=== PATIENT | male | born 1990 | race Caucasian/White ===

== ENCOUNTER 2016-11-11 07:46 | Inpatient (IN) | payer OTHER ==
[2016-11-11] MEDS ORDERED: HYDROmorphONE/DILAUDID 1 MG/ML SYR IVP ONE ×2 (08:19→09:56)
[2016-11-11] MEDS ORDERED: NS 1,000 ML IV ONE ×3 (08:19→16:00)
[2016-11-11] MEDS ORDERED: DEXAMETHASONE 10 MG/ML VIAL IVP ONE (08:19)
[2016-11-11] MEDS ORDERED: AMPICILLIN/SULBACTAM 3 GM in NS 100 ML IV ONE (08:19)
--- NOTE | 2016-11-11 08:22 | EDPHY ---
H & P Time Seen by Provider: 11/11/16 08:02 HPI/ROS: CHIEF COMPLAINT: Sore throat and facial swelling HISTORY OF PRESENT ILLNESS: Patient had dental pain for several days. History is difficult because the patient has and difficulty talking because he has trouble opening his mouth is really painful to speak. Yesterday was placed on oral amoxicillin and has an appointment with Dr. Couch tomorrow to have a tooth extracted. Today presents with facial swelling and difficulty opening his mouth. Right- sided cheek and jaw pain which is severe. Worse with opening his mouth. Does not radiate. Not associated with fever or chills or difficulty breathing. REVIEW OF SYSTEMS: Eye: no change in vision ENT: HPI, no ear pain Cardiac: no chest pain or syncope Pulmonary: no cough or SOB Abdomen: no vomiting, diarrhea, abdominal pain Musculoskeletal: no back pain Skin: no rash Neuro: no headache Constitutional: no fever : no urinary symptoms A comprehensive 10 point review of systems is otherwise negative aside from elements mentioned in the history of present illness. PAST MEDICAL HISTORY: Negative Social history: Lives in [facility] General Appearance: Alert and conversant, cooperative. Eyes: No scleral icterus. ENT, Mouth: Normal tympanic membranes. He does have trismus. There is mild right facial swelling. No stridor or drooling. Pharynx is unable to be visualized. Respiratory: Normal respiratory effort, breath sounds equal, lungs are clear to auscultation. Cardiovascular: Regular rate and rhythm. Gastrointestinal: Abdomen is soft and non tender. Neurological: Alert and oriented x3. Normally conversant. Face symmetric, normal movement and sensation in all extremities. Skin: Warm and dry, no rashes. Specifically no rash over the right cheek. Musculoskeletal: No peripheral edema and no joint swelling. Psychiatric: Not agitated. Emergency Department course/MDM: IV normal saline 2 L, Dilaudid 0.5 mg IV, Unasyn 3 g IV, dexamethasone [address] scanning to evaluate for abscess, consultation with Dr. Couch his oral surgeon. Per Dr. Couch admit for IV fluids and antibiotics, and he will see him later this afternoon. At this point when the patient is able to speak he does not have stridor or drooling and I do not think he is at high risk of acute airway obstruction at this time. Smoking Status: Never smoked Constitutional: Initial Vital Signs Temperature (C) 37 C 11/11/16 07:47 Heart Rate 105 H 11/11/16 07:47 Respiratory Rate 18 11/11/16 07:47 Blood Pressure 134/90 H 11/11/16 07:47 O2 Sat (%) 99 11/11/16 07:47 O2 Delivery Mode Room Air Allergies/Adverse Reactions: No Known Allergies Allergy (Unverified 11/11/16 07:51) Home Medications: Medication Instructions Recorded Amoxicillin 500 mg PO Q8 11/11/16 Medical Decision Making - Diagnostics Imaging Results: Imaging Impressions Face CT 11/11/16 08:30 Impression: 1. No evidence of mass or lymphadenopathy within the neck. There are some prominent reactive nodes on each side of the neck. 2. Minimal mucosal thickening inferior aspect of each maxillary sinus. 3. Mild soft tissue thickening along the inferior aspect of the mandible in the subcutaneous tissues and involving the platysmas muscle. No evidence of abscess. Findings discussed with Nain Tilley M.D. at 9:15 hour, 11/11/2016. Maxillofacial CT reviewed with Dr. Sarkar, with IV contrast at 9:10 a.m.. No abscess seen. Consult/Admit Bed Type: [address] will admit, [facility] for [place] [address] - Data Points Laboratory Results: Laboratory Results 11/11/16 08:19 11/11/16 08:19 11/11/16 11/11/16 11/11/16 08:21 08:19 08:19 WBC 10.96 10^3/uL H 10^3/uL (3.80-9.50) RBC 4.76 10^6/uL 10^6/uL (4.40-6.38) Hgb 15.9 g/dL g/dL (13.7-17.5) POC Hgb 15.6 gm/dL gm/dL (14.5-17.3) Hct 44.0 % % (40.0-51.0) POC Hct 46 % % (42.8-50.6) MCV 92.4 fL fL (81.5-99.8) MCH 33.4 pg pg (27.9-34.1) MCHC 36.1 g/dL g/dL (32.4-36.7) RDW 11.6 % % (11.5-15.2) Plt Count 123 10^3/uL L 10^3/uL (150-400) MPV 9.9 fL fL (8.7-11.7) Neut % (Auto) 80.7 % H % (39.3-74.2) Lymph % (Auto) 5.8 % L % (15.0-45.0) [place] % (Auto) 12.6 % % (4.5-13.0) Eos % (Auto) 0.0 % L % (0.6-7.6) Baso % (Auto) 0.4 % % (0.3-1.7) Nucleat RBC Rel Count 0.0 % % (0.0-0.2) Absolute Neuts (auto) 8.84 10^3/uL H 10^3/uL (1.70-6.50) Absolute Lymphs (auto) 0.64 10^3/uL L 10^3/uL (1.00-3.00) Absolute Monos (auto) 1.38 10^3/uL H 10^3/uL (0.30-0.80) Absolute Eos (auto) 0.00 10^3/uL L 10^3/uL (0.03-0.40) Absolute Basos (auto) 0.04 10^3/uL 10^3/uL (0.02-0.10) Absolute Nucleated RBC 0.00 10^3/uL 10^3/uL (0-0.01) Immature Gran % 0.5 % % (0.0-1.1) Seg Neutrophils % 49 % % Band Neutrophils % 35 % % Lymphocytes % 3 % % Monocytes % 13 % % Immature Gran # 0.06 10^3/uL 10^3/uL (0.00-0.10) Absolute Seg Neuts 5.37 10^/uL 10^/uL (1.70-6.50) Absolute Band Neuts 3.84 10^3/uL H 10^3/uL (0.00-0.70) Absolute Lymphocytes 0.33 10^3/uL L 10^3/uL (1.00-3.00) Absolute Monocytes 1.42 10^3/uL H 10^3/uL (0.30-0.80) RBC/WBC/PLT Morphology NORMAL (NORMAL) Platelet Estimate DECREASED L (ADEQ) POC Sodium 134 mEq/L mEq/L (134-144) Sodium 133 mEq/L L mEq/L (134-144) POC Potassium 3.5 mEq/L mEq/L (3.3-5.0) Potassium 3.9 mEq/L mEq/L (3.5-5.2) POC Chloride 96 mEq/L mEq/L (96-108) Chloride 97 mEq/L mEq/L (97-110) Carbon Dioxide 25 mEq/l mEq/l (22-31) Anion Gap 11 mEq/L mEq/L (8-16) POC BUN 11 mg/dL mg/dL (7-23) BUN 13 mg/dL mg/dL (7-23) Creatinine 0.9 mg/dL mg/dL (0.7-1.3) POC Creatinine 0.9 mg/dL mg/dL (0.8-1.5) Estimated GFR > 60 Glucose 99 mg/dL mg/dL (70-100) POC Glucose 101 mg/dL H mg/dL (70-100) Calcium 9.1 mg/dL mg/dL (8.5-10.4) Medications Given: Discontinued Medications Dexamethasone (Decadron Injection) 10 mg IVP EDNOW ONE Stop: 11/11/16 08:20 Last Admin: 11/11/16 08:35 Dose: 10 mg Hydromorphone HCl (Dilaudid) 0.5 mg IVP EDNOW ONE Stop: 11/11/16 08:20 Last Admin: 11/11/16 08:35 Dose: 0.5 mg Hydromorphone HCl (Dilaudid) 0.5 mg IVP EDNOW ONE Stop: 11/11/16 09:57 Last Admin: 11/11/16 10:07 Dose: 0.5 mg Sodium Chloride (Ns) 1,000 mls @ 0 mls/hr IV ONCE ONE PRN Reason: Wide Open Stop: 11/11/16 08:20 Last Admin: 11/11/16 08:36 Dose: 1,000 mls Sodium Chloride (Ns) 1,000 mls @ 0 mls/hr IV ONCE ONE PRN Reason: Wide Open Stop: 11/11/16 08:20 Last Admin: 11/11/16 09:56 Dose: 1,000 mls Ampicillin Sodium/Sulbactam (Sodium 3 gm/ Sodium Chloride) 100 mls @ 200 mls/ hr IV EDNOW ONE PRN Reason: Protocol Stop: 11/11/16 08:48 Last Admin: 11/11/16 09:00 Dose: 100 mls Point of Care Test Results: 11/11/16 08:21 POC Sodium 134 POC Potassium 3.5 POC Chloride 96 POC BUN 11 POC Creatinine 0.9 POC Glucose 101 H Departure - Departure Disposition: [facility] Inpatient Acute Clinical Impression: Facial cellulitis Condition: Good
[2016-11-11 08:32] LABS: % IMMATURE GRANULYOCYTES 0.5 % (0.0-1.1); ABSOLUTE IMMATURE GRANULOCYTES 0.06 10^3/uL (0.00-0.10); ADD DIFF? NO; ADD MORPH? NO; ADD SCAN? YES; ATYPICAL LYMPHOCYTE FLAG 0 (0-99); FRAGMENT RBC FLAG 0 (0-99); HEMOGLOBIN 15.9 g/dL (13.7-17.5); LIPEMIA HEMOLYSIS FLAG 90 (0-99); MEAN CELL HEMOGLOBIN 33.4 pg (27.9-34.1); MEAN CELL HEMOGLOBIN CONCENTR. 36.1 g/dL (32.4-36.7); MEAN CELL VOLUME 92.4 fL (81.5-99.8); MEAN PLATELET VOLUME 9.9 fL (8.7-11.7); PLATELET CLUMPS FLAG 30 (0-99); PLATELET COUNT 123 10^3/uL (150-400); RED BLOOD CELL COUNT 4.76 10^6/uL (4.40-6.38); RED CELL DISTRIBUTION WIDTH 11.6 % (11.5-15.2)
[2016-11-11 08:35] LABS: LEFT SHIFT FLG 300 (0-99)
[2016-11-11] MEDS ORDERED: IOPAMIDOL (ISOVUE-300) 100 ML BTL IV ONE (08:38)
[2016-11-11 08:43] LABS: ANION GAP 11 mEq/L (8-16); CALCIUM 9.1 mg/dL (8.5-10.4); CARBON DIOXIDE 25 mEq/l (22-31); CHLORIDE 97 mEq/L (97-110); CREATININE 0.9 mg/dL (0.7-1.3); GLOMERULAR FILTRATION RATE > 60; GLUCOSE 99 mg/dL (70-100); POTASSIUM 3.9 mEq/L (3.5-5.2); SODIUM 133 mEq/L (134-144)
[2016-11-11 09:13] LABS: SCAN POSITIVE
[2016-11-11 09:24] LABS: PLATELET ESTIMATE DECREASED (ADEQ)
[2016-11-11] MEDS ORDERED: ONDANSETRON DISINTEGRATING 4 MG TAB PO PRN (10:52)
[2016-11-11] MEDS ORDERED: ONDANSETRON 4 MG/2 ML VIAL IVP PRN (10:52)
[2016-11-11] MEDS: D5W 1/2 NS 1,000 ML IV SCH ×2 (11:30→16:56)
[2016-11-11] MEDS: AMPICILLIN/SULBACTAM 3 GM in NS 100 ML IV SCH ×3 (11:36→23:35)
[2016-11-11] MEDS: DEXAMETHASONE 4 MG/ML VIAL IVP SCH ×3 (11:36→23:37)
[2016-11-11] MEDS: HYDROmorphONE/DILAUDID 1 MG/ML SYR IVP PRN ×3 (11:52→22:21)
--- NOTE | 2016-11-11 12:32 | GHP ---
[f rep st] HISTORY AND PHYSICAL DATE OF ADMISSION: 11/11/2016 CHIEF COMPLAINT: Right tooth pain, inability to open mouth. HISTORY OF PRESENT ILLNESS: This is a 26-year-old male, who has had tooth pain for the last 3 or 4 days. The patient had swelling and worsened in spite of being on amoxicillin. He is now unable to open his mouth. He has severe sore throat, is unable to swallow. He has severe right-sided cheek a nd jaw pain. He had fevers about 2 or 3 days ago, but not any since then. REVIEW OF SYSTEMS: A 10-point review of systems was obtained and negative. PAST MEDICAL HISTORY: None. MEDICATIONS: Amoxicillin. SOCIAL HISTORY: No smoking or alcohol. 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 FAMILY HISTORY: Reviewed and noncontributory. PHYSICAL EXAM: VITAL SIGNS: Afebrile, blood pressure is 138/77, heart rate 99, oxygen saturation 9 2% on room air. GENERAL: The patient is well developed, in no apparent distress. HEENT: Nonicter ic sclerae. EOMs intact. Has significant tenderness along the right jaw, as well as left jaw, and some tender lymphadenopathy. LUNGS: Good effort. Clear to auscultation bilaterally. CARDIOVASCUL AR: Regular rate and rhythm. No murmurs, gallops. ABDOMEN: Positive bowel sounds. Soft, nontend er, nondistended. No hepatosplenomegaly. EXTREMITIES: No clubbing, cyanosis, or edema. SKIN: Wi thout rash, dry, intact. NEUROLOGIC: Alert and oriented x3. Moves all 4 extremities equally. PSY CH: Normal affect. LABS: White blood cell count is 10, sodium is 133. A facial CT does not show any abscess. ASSESSMENT: This is a 26-year-old male with severe dental infection, who will require tooth extract ion. PLAN: Patient will be admitted for IV pain medicine. We will start IV Unasyn, as well as Decadron. His oral surgeon has been called and will see him this afternoon. I am not sure if he will take h im to the OR today or tomorrow. /[id number]/MODL
[2016-11-11] MEDS: NS 1,000 ML IV SCH ×2 (17:07→23:35)
--- NOTE | 2016-11-11 17:47 | GCON ---
[f rep st] CONSULTATION DATE OF CONSULTATION: 11/11/2016 CHIEF COMPLAINT: Right-sided tooth pain and facial pain. HISTORY OF PRESENT ILLNESS: The patient is a previously healthy 26-year-old male who has suffered from tooth pain associated with tooth #31 for the last 3- 4 days. He was scheduled to be seen in my office tomorrow for extraction of tooth #31. However, he began to have increased swelling, difficulty speaking, dyspnea, dysphagia, and trismus, for which he was admitted to the hospital today. He was previously taking amoxicillin. He is currently on Unasyn as an inpatient. He reports being febrile for the last 2 or 3 days. PAST MEDICAL HISTORY: Denies a history of cardiac, pulmonary, renal, or hepatic disease. MEDICATIONS: Amoxicillin. Allergies: NKDA SOCIAL HISTORY: No smoking but reports social alcohol use. PHYSICAL EXAMINATION: HEAD AND NECK: The patient has a mild right-sided submandibular swelling which is tender to palpation. The area is fluctuant and not cellulitic. Intraoral examination is limited because the patient's maximum vertical opening is approximately 15 mm. The patient has significant floor of mouth swelling with the mucosa extending over the occlusal surface of the teeth. There is a large carious lesion on tooth #31. The tooth is painful to palpation. There is no buccal vestibular swelling. The airway examination cannot be performed due to the limited oral opening. RADIOGRAPHS: CT scan reveals a small loculation of fluid directly lingual to the mandible adjacent to tooth #31. The patient has some slight airway deviation and some cellulitic changes in the soft tissue. ASSESSMENT AND PLAN: Findings were discussed in detail with Sharan. All questions were answered. I have informed the patient that he has a submandibular and sublingual space infection and that I would like to take him to the operating room to extract tooth #31 and perform intraoral and possibly extraoral incision and drainage of the suspected odontogenic abscess. The patient understands that if any other teeth are determined to be carious and nonrestorable they will also be extracted at that point in time. Risks, benefits, consequences, complications of the procedure were thoroughly discussed in detail including the possibility of damage to the lingual nerve, inferior alveolar nerve and/or marginal mandibular nerve as well as their innervation. Signed and verbal consent was obtained. The patient will be admitted back to the hospitalist service following incision and drainage of the abscess and extraction of tooth #31. I will try and perform this tonight. The patient has been n.p.o. since 7 this morning. /[id number]/MODL MTDD
[2016-11-11] MEDS ORDERED: BUPIVACAINE/EPI 0.25% 30 ML SDV ONE (18:32)
[2016-11-11] MEDS ORDERED: BACITRACIN 50,000 UNITS/10 ML SYR IRR ONE (18:32)
[2016-11-11] MEDS ORDERED: BUPIVACAINE/EPI 0.5% 30 ML SDV ONE (18:32)
[2016-11-11] MEDS ORDERED: POLYMYXIN B SULFATE 500,000 UNIT/10 ML SYR IRR ONE (18:32)
[2016-11-11] MEDS ORDERED: LIDO/EPI 2%** Not for Epidural 20 ML MDV ONE (18:51)
[2016-11-11] MEDS ORDERED: LIDO/EPI 2% **for epidural** 20 ML SDV ONE (18:51)
[2016-11-11] MEDS ORDERED: MIDAZOLAM 2 MG/2 ML VIAL ONE (19:25)
[2016-11-11] MEDS ORDERED: ROCURONIUM 50 MG/5 ML VIAL ONE ×2 (19:32→20:19)
[2016-11-11] MEDS ORDERED: SUCCINYLCHOLINE CHLORIDE*ANESTHESIA ONLY*200 MG/10 ML SYR IVP ONE (19:32)
[2016-11-11] MEDS ORDERED: LIDOCAINE 2% 5 ML SDV ONE (19:33)
[2016-11-11] MEDS ORDERED: fentaNYL 100 MCG/2 ML INJ ONE ×3 (19:33→21:10)
[2016-11-11] MEDS ORDERED: PROPOFOL 200 MG/20 ML VIAL ONE (19:33)
[2016-11-11] MEDS ORDERED: LIDOCAINE 2% JELLY 5 ML TUBE ONE (19:37)
[2016-11-11] MEDS ORDERED: SUGAMMADEX SODIUM 200 MG/2 ML VIAL IVP ONE (19:50)
[2016-11-11] MEDS ORDERED: DEXAMETHASONE 4 MG/ML VIAL ONE ×2 (20:01)
--- NOTE | 2016-11-11 20:04 | POSTOPPROG ---
Post Op Note Date of Operation: 11/11/16 Surgeon: Edwin Couch Denture Technician: none Anesthesia: GET(General Endotracheal) (Nasal intubation) Pre-op Diagnosis: Right submandibular and sublingual odontogenic abscess, carious #31 Post-op Diagnosis: Same Indication: Odontogenic abscess Procedure: Extraction #31, I&D of right submandibular and sublingual space abscess Findings: right submandibular and sublingual space abscess Inf/Abcess present in the surg proc area at time of surgery?: Yes Depth: Deep Incisional (Fascial) (sublingual and right submandibular space abscess) EBL: Minimal Total fluids administered: 700cc Complications: none Drains: Other (12 Fr red rubber catheter in the right submandibular space) Specimen(s): none
[2016-11-11] MEDS ORDERED: PROPOFOL/EMULSION 500 MG/50 ML BOTTLE IV ONE (21:11)
[2016-11-11] MEDS ORDERED: PROPOFOL/EMULSION 1,000 MG/100 ML BOTTLE IV ONE (22:08)
[2016-11-11] MEDS: PROPOFOL/EMULSION 100 ML IV SCH (22:18)
[2016-11-11] MEDS: fentaNYL/NACL 100 ML IV SCH (22:21)
--- NOTE | 2016-11-11 22:43 | GOP ---
[f rep st] OPERATIVE REPORT DATE OF OPERATION: 11/11/2016 SURGEON: Edwin Couch DDS OPINION POLLS SURVEY WORKER: None. ANESTHESIA: General nasotracheal. PREOPERATIVE DIAGNOSIS: 1. Right submandibular odontogenic abscess. 2. Sublingual odontogenic abscess. 3. Carious tooth #31. POSTOPERATIVE DIAGNOSIS: 1. Right submandibular odontogenic abscess. 2. Sublingual odontogenic abscess. 3. Carious tooth #31. PROCEDURE PERFORMED: 1. Surgical extraction of tooth #31. 2. Intraoral drainage of a right sublingual and submandibular space abscess. 3. Extraoral drainage of a right submandibular and sublingual space abscess. FINDINGS: Right submandibular and sublingual space abscess. ESTIMATED BLOOD LOSS: Minimal. INDICATIONS: The patient is a previously healthy 26-year-old male who developed acute right-sided facial swelling, dysphagia, dyspnea, trismus and was admitted to the hospital with a suspected right submandibular and sublingual space abscess from a carious tooth #31. He was evaluated as an inpatient earlier today, and determined that incision and drainage was necessary to help resolve his infection. Signed and verbal consent was obtained. DESCRIPTION OF PROCEDURE: The patient was transported into the OR and onto the operating room table. Following successful nasotracheal intubation, the patient was prepped and draped in a normal sterile fashion. Intraorally, he was prepped with Peridex mouth rinse. A throat screen and bite block were placed. Then 5 cc of 2% lidocaine with 1:100,000 epinephrine was given in an inferior alveolar nerve and long buccal block. A #15 blade was used to make a sulcular incision around tooth #31 with a distal 3rd molar releasing incision. Subperiosteal dissection was performed with a [place] elevator. Tooth #31 was elevated. It was then sectioned with a surgical handpiece under copious irrigation. The tooth was divided, and the roots were then elevated and delivered individually. Purulence was noted to be draining through the extraction site which was cultured. Next the #15 blade was used to create a lingual sulcular incision, and subperiosteal dissection was performed to enter the submandibular abscess cavity on the right. Minimal drainage was obtained. It was then determined that extraoral drainage would be necessary to establish dependent drainage. An incision line was marked 2 cm below the inferior border of the mandible in a resting skin tension line. Then 5 cc of local anesthesia was infiltrated superficially. A #15 blade was used to make a 2 cm incision in the neck line. Bovie electrocautery was used to perform dissection down to the platysma muscle. Bleeders were cauterized. Blunt dissection was then performed with a hemostat through the platysma muscle and through the deeper tissue, to enter the submandibular abscess cavity as well as into the sublingual space. Approximately 5 cc of purulent material was evacuated from the abscess cavity. A 12-[place] red rubber catheter was placed into the abscess cavity, and 500 cc of normal saline impregnated with polymyxin and bacitracin antibiotic was irrigated into the abscess cavity. The red rubber catheter was left in the cavity and was secured to the skin with a 5-0 nylon suture. Four interrupted nylon sutures were used to loosely reapproximate the proximal portion of the incision. The distal portion was left open. The throat screen and bite block were removed. Due to the patient's airway swelling, it was determined that we were going to leave him intubated overnight. The nasotracheal tube was secured to the septum with a septal suture. The patient was then transported to the ICU in stable condition and intubated. SURGEON: Edwin Couch DDS. DRAINS: An extraoral drain placed in the right submandibular space. DISPOSITION: The patient will be remain intubated overnight and will be evaluated tomorrow for extubation with an air leak test. Following resolution of his facial swelling and improvement in his white count, will evaluate the patient for discharge to home. He will be admitted to the hospitalist service. /[id number]/MODL MTDD
[2016-11-11] MEDS: LORazepam 2 MG/ML INJ IVP PRN (22:52)
[2016-11-11 23:06] LABS: BASE EXCESS -2.6 mEq/L (-2.5-2.5); BICARBONATE 21 mEq/L (22-26); MEASURED OXYGEN SATURATION 99 % (92-95); PCO2 36 mmHg (34-38); PO2 204 mmHg (65-75); TCO2 22 mEq/L (23-27)
[2016-11-11 23:08] LABS: END TIDAL CO2 35; SIMV YES
[2016-11-11 23:09] LABS: PRESSURE SUPPORT 7
[2016-11-12] MEDS: PROPOFOL/EMULSION 100 ML IV SCH ×3 (00:52→11:32)
[2016-11-12] MEDS: LORazepam 2 MG/ML INJ IVP PRN ×6 (02:25→16:45)
[2016-11-12] MEDS: fentaNYL/NACL 100 ML IV SCH ×2 (03:15→09:49)
[2016-11-12 04:24] LABS: % IMMATURE GRANULYOCYTES 0.4 % (0.0-1.1); ABSOLUTE IMMATURE GRANULOCYTES 0.04 10^3/uL (0.00-0.10); ADD DIFF? NO; ADD MORPH? NO; ADD SCAN? YES; ATYPICAL LYMPHOCYTE FLAG 0 (0-99); FRAGMENT RBC FLAG 0 (0-99); HEMOGLOBIN 12.9 g/dL (13.7-17.5); LIPEMIA HEMOLYSIS FLAG 90 (0-99); MEAN CELL HEMOGLOBIN 33.9 pg (27.9-34.1); MEAN CELL HEMOGLOBIN CONCENTR. 35.8 g/dL (32.4-36.7); MEAN CELL VOLUME 94.7 fL (81.5-99.8); PLATELET CLUMPS FLAG 0 (0-99); PLATELET COUNT 108 10^3/uL (150-400); RED CELL DISTRIBUTION WIDTH 11.8 % (11.5-15.2)
[2016-11-12 04:33] LABS: LEFT SHIFT FLG 300 (0-99)
[2016-11-12 04:48] LABS: ANION GAP 6 mEq/L (8-16); CALCIUM 8.2 mg/dL (8.5-10.4); CARBON DIOXIDE 24 mEq/l (22-31); CHLORIDE 108 mEq/L (97-110); CREATININE 0.7 mg/dL (0.7-1.3); GLOMERULAR FILTRATION RATE > 60; GLUCOSE 204 mg/dL (70-100); POTASSIUM 4.4 mEq/L (3.5-5.2); SODIUM 138 mEq/L (134-144)
[2016-11-12 05:22] LABS: SCAN POSITIVE
[2016-11-12 05:34] LABS: PLATELET ESTIMATE DECREASED (ADEQ)
[2016-11-12] MEDS: AMPICILLIN/SULBACTAM 3 GM in NS 100 ML IV SCH ×3 (05:39→17:41)
[2016-11-12] MEDS: DEXAMETHASONE 4 MG/ML VIAL IVP SCH ×4 (05:39→23:12)
[2016-11-12] MEDS: NS 1,000 ML IV SCH (06:17)
[2016-11-12] MEDS ORDERED: LIDOCAINE 2% JELLY 5 ML TUBE ONE ×2 (13:53→16:59)
--- NOTE | 2016-11-12 15:20 | HOSPPROG ---
Hospitalist Progress Note Assessment/Plan: * tooth abscess with significant throat swelling * Status post drainage * Continue IV antibiotics as well as steroids * acute respiratory failure * On ventilator for now * Waiting for airway swelling to improve * DVT and GI prophylaxis 35 minutes of critical care time spent Subjective: On ventilator after tooth extraction yesterday Objective: Vital Signs Temp Pulse Resp BP Pulse Ox 36.5 C 56 L 14 105/60 97 11/12/16 15:00 11/12/16 15:00 11/12/16 15:00 11/12/16 15:00 11/12/16 15:00 Microbiology 11/11/16 20:42 Gram Stain - Final Mouth - Eswab Laboratory Results 11/12/16 04:15 11/12/16 04:15 11/11/16 11/12/16 11/13/16 05:59 05:59 05:59 Intake Total 3242.6 Output Total 1100 Balance 2142.6 - Physical Exam Constitutional: no apparent distress, appears nourished, not in pain Eyes: anicteric sclera Ears, Nose, Mouth, Throat: other (Neck swelling worse, drain in place) Cardiovascular: regular rate and rhythym, no murmur, rub, or gallop Respiratory: no respiratory distress, no rales or rhonchi, clear to auscultation Gastrointestinal: normoactive bowel sounds, soft, non-tender abdomen, no palpable masses Skin: warm Neurologic: other (Sedated) ICD10 Worksheet Patient Problems: Problems Problem Status Onset Facial cellulitis Acute
[2016-11-12] MEDS ORDERED: D5W 1/2 NS W/ 20 KCl/L 1,000 ML IV SCH (15:30)
--- NOTE | 2016-11-12 16:30 | GCON ---
[f rep st] CONSULTATION PULMONARY CRITICAL CARE CONSULTATION DATE OF CONSULTATION: 11/12/2016 REASON FOR CONSULTATION: Peritonsillar abscess, status post drainage, intubated and on the ventilat or with concern for airway compromise. HISTORY: The patient is a 26-year-old generally healthy gentleman who presented with a right subman dibular odontogenic abscess extending into the sublingual area secondary to a tooth infection. The tooth was extracted and intraoral and extraoral drainage of the sublingual and submandibular abscess was performed. The patient was left intubated nasally on the ventilator secondary to possible airw ay compromise. It was felt that he possibly could be extubated today. PAST MEDICAL HISTORY: Unremarkable. He has no medical problems. He was on amoxicillin on admissio n. 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 Alcohol and tobacco are denied. FAMILY HISTORY: Negative. REVIEW OF SYSTEMS: Unobtainable. DRUG ALLERGIES: None known. PHYSICAL EXAMINATION: GENERAL: Reveals a tanned young man who is being sedated and appears comfort able on the ventilator. VITAL SIGNS: Within normal limits. On 40% FiO2, saturations are 97%. JERALD NT: The endotracheal tube is present nasally. Pupils appear equal. Drains are in place. There is no purulent drainage currently. CHEST: Clear. HEART: Regular to bradycardic without significant murmurs or gallops. ABDOMEN: Soft and nontender. Bowel sounds are present but diminished. EXTRE MITIES: Unremarkable. NEUROLOGIC: Nonfocal. ASSESSMENT: 1. Status post mandibular and peritonsillar abscess with drainage. 2. Potential for airway compromise. PLAN AND RECOMMENDATIONS: I will try to discuss the case with Dr. Couch, who did the surgery. Dr. Couch is not currently available. We will try to perform a "leak test." Extubation over the bronch oscope will be considered, looking for airway obstruction as we slowly pull the tube back. Antibiotics and steroids will be continued. Further plans and recommendations will be made over the next several hours. /[id number]/MODL
--- NOTE | 2016-11-12 18:00 | GPN ---
[f rep st] PROCEDURE NOTE DATE OF PROCEDURE: 11/12/2016 PROCEDURE PERFORMED: Bronchoscopy. REASON FOR PROCEDURE: Extubation over the bronchoscope secondary to risk of upper airway obstructio n from a peritonsillar abscess. PROCEDURE NOTE: The procedure was done in the patient's room in the intensive care unit. This proc edure was not done to investigate any respiratory illness, only to clear his upper airway. A negati ve pressure room and N95 masks were not indicated. Patient passed a leak test with the balloon defl ated prior to the procedure. A small bore intubating fiberoptic bronchoscope from the operating room was used. This was advanced into his nasal endotracheal tube with the scope and visualization left at the end of the endotrache al tube. The tube was then withdrawn with the scope inside of it so that the airway could be visual ized at the tip of the endotracheal tube. The tube was withdrawn through the vocal cords and up slo wly through the oropharynx. There was no evidence of obstruction. The patient could phonate fairly well with the tube above the vocal cords. As the tube was withdrawn further, there was no evidence of full obstruction or mass. The tube was then removed. Following removal of the tube, there was no evidence of stridor. The patient could take good deep breaths and exhale relatively normally. P honation/voice was good. IMPRESSION: Successful extubation, without evidence of upper airway obstruction. /[id number]/MODL
--- NOTE | 2016-11-12 19:17 | SOAPPROG ---
SOAP Progress Note Assessment/Plan: Assessment: Sharan is POD #1 s/p ext tooth #31, intraoral and extraoral I&D of a right submandibular and sublingual abscess. The patient is doing well Plan: 1. Patient can be discharged tomorrow 2. Please irrigate neck drain 3x per day with 100 cc NS 3. Can remove drain prior to discharge tomorrow 4. Please dress neck incision with bacitracin and discharge with Rx for bacitracin and amoxicillin 5. Patient is to f/u in our office next week for his post operative appointment and possible bone graft of site #31. Please call to set up an appointment [phone] 6. Can advance to a regular diet 7. Please call with questions [phone] 11/12/16 19:14 Subjective: Sharan is POD #1 s/p ext tooth #31, intraoral and extraoral I&D of a right submandibular and sublingual abscess. Patient was extubated earlier today. He is able to speak, trismus and pain is resolving. Patient overall feels much better Objective: Vital Signs Temp Pulse Resp BP Pulse Ox 36.5 C 92 12 125/77 H 94 11/12/16 15:00 11/12/16 18:00 11/12/16 18:00 11/12/16 18:00 11/12/16 18:00 11/11/16 11/12/16 11/13/16 05:59 05:59 05:59 Intake Total 2475 Output Total 700 Balance 1775 WBC is now 9.8, afebrile, neck incision with sutures c/d/i, drain in place with minor serosanguineous drainage. Ext #31 hemostatic with healthy clot, FOM swelling and extraoral swelling is resolving. Septal silk suture removed - Time Spent With Patient Time Spent With Patient: 20min ICD10 Worksheet Patient Problems: Problems Problem Status Onset Facial cellulitis Acute
[2016-11-12] MEDS: FAMOTIDINE 20 MG/NACL 50 ML IV SCH (19:53)
[2016-11-12] MEDS: BACITRACIN OINTMENT 1 PACKET TP SCH (19:53)
[2016-11-12] MEDS: ACETAMINOPHEN 325 MG TAB PO PRN (23:12)
[2016-11-13 04:45] LABS: ADD MORPH? NO; ATYPICAL LYMPHOCYTE FLAG 0 (0-99); FRAGMENT RBC FLAG 0 (0-99); HEMATOCRIT 38.1 % (40.0-51.0); HEMOGLOBIN 13.2 g/dL (13.7-17.5); LIPEMIA HEMOLYSIS FLAG 90 (0-99); MEAN CELL HEMOGLOBIN 32.9 pg (27.9-34.1); MEAN CELL HEMOGLOBIN CONCENTR. 34.6 g/dL (32.4-36.7); MEAN PLATELET VOLUME 10.3 fL (8.7-11.7); PLATELET CLUMPS FLAG 0 (0-99); PLATELET COUNT 171 10^3/uL (150-400); RED BLOOD CELL COUNT 4.01 10^6/uL (4.40-6.38); RED CELL DISTRIBUTION WIDTH 11.8 % (11.5-15.2)
[2016-11-13 04:54] LABS: ADD DIFF? YES; ADD SCAN? NO; LEFT SHIFT FLG 140 (0-99)
[2016-11-13 04:57] LABS: ANION GAP 6 mEq/L (8-16); CALCIUM 8.4 mg/dL (8.5-10.4); CARBON DIOXIDE 24 mEq/l (22-31); CHLORIDE 107 mEq/L (97-110); CREATININE 0.6 mg/dL (0.7-1.3); GLOMERULAR FILTRATION RATE > 60; GLUCOSE 210 mg/dL (70-100); POTASSIUM 4.6 mEq/L (3.5-5.2); SODIUM 137 mEq/L (134-144)
[2016-11-13] MEDS: oxyCODONE IR 5 MG TAB PO PRN ×2 (05:22→09:31)
[2016-11-13] MEDS: DEXAMETHASONE 4 MG/ML VIAL IVP SCH (05:22)
[2016-11-13 06:09] LABS: PLATELET ESTIMATE ADEQUATE (ADEQ); TOXIC GRANULATION PRESENT
[2016-11-13] MEDS: FAMOTIDINE 20 MG/NACL 50 ML IV SCH (08:08)
[2016-11-13] MEDS: BACITRACIN OINTMENT 1 PACKET TP SCH (08:08)
[2016-11-13 08:28] VITALS: TEMP 98.4
[2016-11-13] MEDS ORDERED: ENOXAPARIN 40 MG/0.4 ML SYR SC SCH (09:00)
[2016-11-13] MEDS: ACETAMINOPHEN 325 MG TAB PO PRN (09:30)
[2016-11-13 10:47] VITALS: BP 123/63; PULSE 78; RESP 12; O2SAT 96
--- NOTE | 2016-11-13 15:52 | GDS ---
[f rep st] DISCHARGE SUMMARY DISCHARGE DIAGNOSES: 1. Facial cellulitis secondary to tooth abscess. 2. Acute respiratory failure. HISTORY: This is a 26-year-old male who presented with tooth abscess and facial cellulitis. HOSPITAL COURSE: The patient was admitted and given IV antibiotics. He then went to the OR with or al surgery. He remained intubated for 24 hours afterwards due to throat swelling. He was then extu bated and monitored overnight. He has done well with no further facial swelling. He will be discha rged home on antibiotics to follow up with Oral Surgery. /[id number]/MODL
== END 2016-11-13 10:55 | disposition home or self-care (01) | DRG 603 ==
LOC: F1N 10:35 → F2N 21:36 → OBSVTOIN 11-12 16:44
PROVIDERS: ADMIT Internal Medicine; ATTEND Internal Medicine
DX: L03.211 Cellulitis of face (principal); K04.7 Periapical abscess without sinus
CPT/HCPCS: 82947-QW; 96365; G0378; J0295; J0330; J1100; J1170; J1650; J2060; J2250; J2704; J3010; Q9967

== ENCOUNTER 2016-11-14 21:58 | Inpatient (IN) | payer OTHER ==
--- NOTE | 2016-11-14 22:55 | EDPHY ---
H & P Stated Complaint: mouth and throat pain Time Seen by Provider: 11/14/16 22:48 HPI/ROS: CHIEF COMPLAINT: Left side neck, throat swelling HISTORY OF PRESENT ILLNESS: This is a 26-year-old male presenting to the emergency department complaining of neck swelling left-sided jaw pain and swelling with throat swelling. Patient was seen here and admitted on 11/11 for facial cellulitis and abscess the discharge yesterday at noon. Patient states throughout the 9 today he has had increased left-sided neck and jaw swelling with difficulty swallowing, unable to open mouth. Decreased p.o. intake, patient states he feels symptoms have worsened but now are on the left side REVIEW OF SYSTEMS: Constitutional: fever, chills. Decreased p.o. intake Eyes: No discharge. ENT: No sore throat. Throat swelling unable to open mouth. Jaw swelling Cardiovascular: No chest pain, no palpitations. Respiratory: No cough, no shortness of breath. Gastrointestinal: No abdominal pain, no vomiting. Musculoskeletal: No back pain. Skin: No rashes. Neurological: Intermittent headache. Source: Patient - Personal History Current Tetanus/Diphtheria Vaccine: Yes - Medical/Surgical History Hx Asthma: No Hx Chronic Respiratory Disease: No Hx Diabetes: No Hx Cardiac Disease: No Hx Renal Disease: No Hx Cirrhosis: No Hx Alcoholism: No Hx HIV/AIDS: No Hx Splenectomy or Spleen Trauma: No Other PMH: mouth abcess surgery 11-11-16 - Social History Smoking Status: Never smoked - Physical Exam Exam: General Appearance: Alert, no distress. Eyes: Pupils equal and round no pallor or injection. ENT, Mouth: Mucous membranes moist. Left jaw swelling, neck swelling positive trismus. Maintaining airway Respiratory: There are no retractions, lungs are clear to auscultation. Cardiovascular: Regular rate and rhythm. Gastrointestinal: Abdomen is soft and nontender, no masses, bowel sounds normal. Neurological: No focal deficits Skin: Warm and dry, no rashes. Musculoskeletal: Neck swelling tender on palpate. right lateral neck incision noted well-approximated sutures in place Extremities: symmetrical, full range of motion. Psychiatric: Patient is oriented X 3, there is no agitation. Constitutional: Initial Vital Signs Temperature (C) 37.0 C 11/14/16 22:01 Heart Rate 78 11/14/16 22:01 Respiratory Rate 18 11/14/16 22:01 Blood Pressure 140/80 H 11/14/16 22:01 O2 Sat (%) 96 11/14/16 22:01 O2 Delivery Mode Room Air Allergies/Adverse Reactions: No Known Allergies Allergy (Unverified 11/11/16 07:51) Home Medications: Medication Instructions Recorded Amoxicillin 500 mg PO Q8 11/11/16 oxyCODONE HCL/ACETAMINOPHEN 1 - 2 each PO Q6 PRN #30 tablet 11/13/16 [Percocet 5-325 mg Tablet] Medical Decision Making - Diagnostics Imaging Results: Imaging Impressions Neck CT 11/14/16 23:10 Impression: 1. Submental abscess collection with tract extending to the previously drained abscess collection along the inferior margin of the right mandible with sinus tract extending to the skin surface on the right. 2. Abscess versus phlegmon extends into the left parapharyngeal soft tissues superiorly lateral to the adenoid tonsils with thickening of the adenoids on the left. Findings discussed with Johanna Jaimes NP at 1:23 hour, 11/15/2016. Face CT 11/14/16 23:11 Impression: 1. Submental abscess collection with tract extending to the previously drained abscess collection along the inferior margin of the right mandible with sinus tract extending to the skin surface on the right. 2. Abscess versus phlegmon extends into the left parapharyngeal soft tissues superiorly lateral to the adenoid tonsils with thickening of the adenoids on the left. Findings discussed with Johanna Jaimes NP at 1:23 hour, 11/15/2016. ED Course/Re-evaluation: Discussed the plan of care: CBC, BMP, IV fluids for dehydration. CT neck and face 0115: Discussed CT results with Dr. Sarkar 0125: Spoke with Dr. Couch. Patient to be admitted , to hospitalist Dr. Couch will see patient in the morning, Unasyn started. Spoke with Dr. jeffries [facility] admit 0130: Discussed course of care with patient, patient agreed with plan Differential Diagnosis: Other differential diagnosis considered but not limited to airway occlusion, Abdulkadir's angina and necrotizing fasciitis - Data Points Laboratory Results: Laboratory Results 11/14/16 22:17 11/14/16 22:56 11/14/16 11/14/16 22:56 22:17 WBC 10.78 10^3/uL H 10^3/uL (3.80-9.50) RBC 4.61 10^6/uL 10^6/uL (4.40-6.38) Hgb 15.5 g/dL g/dL (13.7-17.5) Hct 43.1 % % (40.0-51.0) MCV 93.5 fL fL (81.5-99.8) MCH 33.6 pg pg (27.9-34.1) MCHC 36.0 g/dL g/dL (32.4-36.7) RDW 11.5 % % (11.5-15.2) Plt Count 330 10^3/uL D 10^3/uL (150-400) MPV 9.7 fL fL (8.7-11.7) Neut % (Auto) 70.8 % % (39.3-74.2) Lymph % (Auto) 16.7 % % (15.0-45.0) [place] % (Auto) 11.0 % % (4.5-13.0) Eos % (Auto) 0.1 % L % (0.6-7.6) Baso % (Auto) 0.3 % % (0.3-1.7) Nucleat RBC Rel Count 0.0 % % (0.0-0.2) Absolute Neuts (auto) 7.63 10^3/uL H 10^3/uL (1.70-6.50) Absolute Lymphs (auto) 1.80 10^3/uL 10^3/uL (1.00-3.00) Absolute Monos (auto) 1.19 10^3/uL H 10^3/uL (0.30-0.80) Absolute Eos (auto) 0.01 10^3/uL L 10^3/uL (0.03-0.40) Absolute Basos (auto) 0.03 10^3/uL 10^3/uL (0.02-0.10) Absolute Nucleated RBC 0.00 10^3/uL 10^3/uL (0-0.01) Immature Gran % 1.1 % % (0.0-1.1) Immature Gran # 0.12 10^3/uL H 10^3/uL (0.00-0.10) Sodium 135 mEq/L mEq/L (134-144) Potassium 4.0 mEq/L mEq/L (3.5-5.2) Chloride 102 mEq/L mEq/L (97-110) Carbon Dioxide 22 mEq/l mEq/l (22-31) Anion Gap 11 mEq/L mEq/L (8-16) BUN 13 mg/dL mg/dL (7-23) Creatinine 0.8 mg/dL mg/dL (0.7-1.3) Estimated GFR > 60 Glucose 84 mg/dL mg/dL (70-100) Calcium 9.1 mg/dL mg/dL (8.5-10.4) Medications Given: Discontinued Medications Dexamethasone (Decadron Injection) 10 mg IVP EDNOW ONE Stop: 11/15/16 01:30 Last Admin: 11/15/16 01:39 Dose: 10 mg Hydromorphone HCl (Dilaudid) 1 mg IVP EDNOW ONE Stop: 11/14/16 23:42 Last Admin: 11/14/16 23:44 Dose: 1 mg Departure - Departure Referrals: NONE *PRIMARY CARE P,. [Primary Care Provider] - As per Instructions
[2016-11-14] MEDS ORDERED: NS 1,000 ML IV SCH (23:00)
[2016-11-14 23:06] LABS: % IMMATURE GRANULYOCYTES 1.1 % (0.0-1.1); ABSOLUTE IMMATURE GRANULOCYTES 0.12 10^3/uL (0.00-0.10); ADD DIFF? NO; ADD MORPH? NO; ADD SCAN? YES; ATYPICAL LYMPHOCYTE FLAG 90 (0-99); FRAGMENT RBC FLAG 0 (0-99); HEMATOCRIT 43.1 % (40.0-51.0); HEMOGLOBIN 15.5 g/dL (13.7-17.5); LIPEMIA HEMOLYSIS FLAG 90 (0-99); MEAN CELL HEMOGLOBIN 33.6 pg (27.9-34.1); MEAN CELL VOLUME 93.5 fL (81.5-99.8); MEAN PLATELET VOLUME 9.7 fL (8.7-11.7); PLATELET CLUMPS FLAG 0 (0-99); PLATELET COUNT 330 10^3/uL (150-400); RED BLOOD CELL COUNT 4.61 10^6/uL (4.40-6.38); RED CELL DISTRIBUTION WIDTH 11.5 % (11.5-15.2)
[2016-11-14 23:09] LABS: LEFT SHIFT FLG 110 (0-99)
[2016-11-14 23:15] LABS: ANION GAP 11 mEq/L (8-16); CALCIUM 9.1 mg/dL (8.5-10.4); CARBON DIOXIDE 22 mEq/l (22-31); CHLORIDE 102 mEq/L (97-110); CREATININE 0.8 mg/dL (0.7-1.3); GLOMERULAR FILTRATION RATE > 60; GLUCOSE 84 mg/dL (70-100); SODIUM 135 mEq/L (134-144)
[2016-11-14 23:30] LABS: SCAN NEGATIVE
[2016-11-14] MEDS ORDERED: HYDROmorphONE/DILAUDID 1 MG/ML SYR IVP ONE (23:41)
[2016-11-14] MEDS ORDERED: HYDROmorphONE/DILAUDID 1 MG/ML SYR ONE (23:41)
[2016-11-15] MEDS ORDERED: IOPAMIDOL (ISOVUE-300) 100 ML BTL IV ONE (00:36)
[2016-11-15] MEDS ORDERED: DEXAMETHASONE 10 MG/ML VIAL IVP ONE (01:29)
[2016-11-15] MEDS ORDERED: AMPICILLIN/SULBACTAM 3 GM in NS 100 ML IV ONE (01:29)
[2016-11-15] MEDS ORDERED: NS 1,000 ML IV SCH (01:45)
[2016-11-15] MEDS ORDERED: ONDANSETRON 4 MG/2 ML VIAL IVP PRN (01:55)
[2016-11-15] MEDS ORDERED: ONDANSETRON DISINTEGRATING 4 MG TAB PO PRN (01:55)
[2016-11-15] MEDS ORDERED: ACETAMINOPHEN 325 MG TAB PO PRN (01:55)
[2016-11-15] MEDS ORDERED: CLINDAMYCIN 600 MG/DEXTROSE 50 ML IV SCH (03:00)
[2016-11-15] MEDS: HYDROmorphONE/DILAUDID 1 MG/ML SYR IVP PRN ×4 (03:24→20:41)
[2016-11-15] MEDS: HYDROmorphONE/DILAUDID 2 MG TAB PO PRN (03:25)
[2016-11-15] MEDS: NS 1,000 ML IV SCH ×3 (03:26→18:09)
[2016-11-15] MEDS ORDERED: PROPOFOL 200 MG/20 ML VIAL ONE (04:54)
[2016-11-15] MEDS ORDERED: fentaNYL 100 MCG/2 ML INJ ONE ×2 (04:54→06:27)
[2016-11-15] MEDS ORDERED: SUCCINYLCHOLINE CHLORIDE*ANESTHESIA ONLY*200 MG/10 ML SYR IVP ONE (04:56)
--- NOTE | 2016-11-15 05:05 | PDGENHP ---
History and Physical - Chief Complaint Acute face pain - History of Present Illness primary oral surgeon: Dr. Couch HPI: 26-year-old male presenting with acute face pain located over his left jaw extending into his neck with associated swelling, odynophagia, dysphagia. He reports the pain is exacerbated by tempting to open his mouth and consequently has resulted in poor oral intake over the past several days. Liquids are more comfortable to swallow then solids. He has been attempting to manage his pain with Percocet has been unsuccessful. Does report that the Dilaudid received in the ER has been able to somewhat alleviated his discomfort. It should be noted that the patient was recently admitted for submental abscess and underwent right-sided drainage by Dr. Couch on 11/11 while receiving IV Unasyn and then discharged with amoxicillin on 11/13. The patient reports that he has been adherent to the amoxicillin between 11/13 and 11/14 , but has continued to experience worsening pain located in the left jaw. History Information - Allergies/Home Medication List Allergies/Adverse Reactions: No Known Allergies Allergy (Unverified 11/11/16 07:51) Home Medications: Amoxicillin 500 mg PO Q8 11/11/16 [Last Taken 11/14/16] I have personally reviewed and updated: family history, medical history, social history, surgical history - Past Medical History Additional medical history: Right submandibular abscess treated with amoxicillin , then Unasyn, then amoxicillin - Surgical History Additional surgical history: Incision and drainage of right submandibular abscess with tooth [address] Couch on 11/11 - Family History Additional family history: no family history of head or neck issues - Social History Smoking Status: Never smoked Alcohol Use: None Drug Use: None Additional social history: normally independent in his ADLs Review of Systems ROS: 10pt was reviewed & negative except for what was stated in HPI & below EENMT: Reports: other ( throat pain, dysphagia, odynophagia) Physical Exam Temp Pulse Resp BP Pulse Ox 36.4 C 66 16 134/79 H 94 11/15/16 03:11 11/15/16 03:11 11/15/16 03:03 11/15/16 03:11 11/15/16 03:11 Constitutional: appears nourished, uncomfortable, No chronically ill appearing Eyes: PERRL, anicteric sclera, EOMI Ears, Nose, Mouth, Throat: other ( mild tongue swelling, left anterior neck and mandible edema with tenderness) Cardiovascular: regular rate and rhythym, no murmur, rub, or gallop, No edema Respiratory: no respiratory distress, no rales or rhonchi, clear to auscultation Gastrointestinal: normoactive bowel sounds, soft, non-tender abdomen, no palpable masses Skin: other ( erythema over the right neck surgical site, tenderness and soft tissue edema over the left mandible and submandibular space) Neurologic: AAOx3, sensation intact bilaterally Psychiatric: interacting appropriately, not anxious, not encephalopathic, thought process linear Lymph, Heme, Immunologic: other ( difficult to appreciate cervical and submandibular lymph nodes secondary to edema) Lab Data & Imaging Review 11/14/16 22:17 11/14/16 22:56 WBC 10.78 10^3/uL (3.80-9.50) H 11/14/16 22:17 RBC 4.61 10^6/uL (4.40-6.38) 11/14/16 22:17 Hgb 15.5 g/dL (13.7-17.5) 11/14/16 22:17 Hct 43.1 % (40.0-51.0) 11/14/16 22:17 MCV 93.5 fL (81.5-99.8) 11/14/16 22:17 MCH 33.6 pg (27.9-34.1) 11/14/16 22:17 MCHC 36.0 g/dL (32.4-36.7) 11/14/16 22:17 RDW 11.5 % (11.5-15.2) 11/14/16 22:17 Plt Count 330 10^3/uL (150-400) D 11/14/16 22:17 MPV 9.7 fL (8.7-11.7) 11/14/16 22:17 Neut % (Auto) 70.8 % (39.3-74.2) 11/14/16 22:17 Lymph % (Auto) 16.7 % (15.0-45.0) 11/14/16 22:17 [place] % (Auto) 11.0 % (4.5-13.0) 11/14/16 22:17 Eos % (Auto) 0.1 % (0.6-7.6) L 11/14/16 22:17 Baso % (Auto) 0.3 % (0.3-1.7) 11/14/16 22:17 Nucleat RBC Rel Count 0.0 % (0.0-0.2) 11/14/16 22:17 Absolute Neuts (auto) 7.63 10^3/uL (1.70-6.50) H 11/14/16 22:17 Absolute Lymphs (auto) 1.80 10^3/uL (1.00-3.00) 11/14/16 22:17 Absolute Monos (auto) 1.19 10^3/uL (0.30-0.80) H 11/14/16 22:17 Absolute Eos (auto) 0.01 10^3/uL (0.03-0.40) L 11/14/16 22:17 Absolute Basos (auto) 0.03 10^3/uL (0.02-0.10) 11/14/16 22:17 Absolute Nucleated RBC 0.00 10^3/uL (0-0.01) 11/14/16 22:17 Immature Gran % 1.1 % (0.0-1.1) 11/14/16 22:17 Immature Gran # 0.12 10^3/uL (0.00-0.10) H 11/14/16 22:17 Sodium 135 mEq/L (134-144) 11/14/16 22:56 Potassium 4.0 mEq/L (3.5-5.2) 11/14/16 22:56 Chloride 102 mEq/L (97-110) 11/14/16 22:56 Carbon Dioxide 22 mEq/l (22-31) 11/14/16 22:56 Anion Gap 11 mEq/L (8-16) 11/14/16 22:56 BUN 13 mg/dL (7-23) 11/14/16 22:56 Creatinine 0.8 mg/dL (0.7-1.3) 11/14/16 22:56 Estimated GFR > 60 11/14/16 22:56 Glucose 84 mg/dL (70-100) 11/14/16 22:56 Calcium 9.1 mg/dL (8.5-10.4) 11/14/16 22:56 Assessment & Plan Assessment: 26-year-old male presenting with acute left-sided submental abscess in the setting of prior anterior neck cellulitis Plan: 1. Submental abscess. Acute, new problem this provider, further workup indicated. CT demonstrating abscess with gas formation as well as left parapharyngeal fluid collections requiring surgical intervention - ongoing [place] [address], similar to discharge level -discussed with Johanna Jaimes, emergency department provider, she has reported to me that Dr. Couch has been contacted and he will perform surgical drainage in the a.m. -given the patient has already received 3 days of Unasyn and 2 separate days of amoxicillin with continued worsening of his condition, will adjust clindamycin at this time -status post dex 10 mg in ED, continue IV 6 mg q.6 hours -reviewed outside records including 11/13/[address] Lucero Hdez , reports that patient's tooth abscess and cellulitis were treated with Unasyn initially then transition to amoxicillin, did require prolonged intubation given upper airway edema -no current evidence of upper airway stridor or obstruction -infectious Disease consultation placed to assist in antibiotic management moving forward -blood cultures sent, cultures from abscess area also to be sent 2. Neck pain. IV Dilaudid, cycle in oral Dilaudid, monitor for constipation Diet. NPO Prophylaxis. Low risk patient, SCDs Code. Full Disposition. Anticipated discharge is 11/16, pending further workup and treatment as outlined above.
--- NOTE | 2016-11-15 05:30 | POSTOPPROG ---
Post Op Note Date of Operation: 11/15/16 Surgeon: Edwin Couch Upset Welding Machine Operator: Darinel Griggs Anesthesia: GET(General Endotracheal) (Nasal intubation) Pre-op Diagnosis: Abdulkadir's angina, left lateral pharyngeal space infection Post-op Diagnosis: Same Indication: Odontogenic abscess Procedure: I&D of bilateral submandibular/sublingual/submental/left laterpharyngeal sp Findings: odontogenic abscess of the above spaces Inf/Abcess present in the surg proc area at time of surgery?: Yes Depth: Deep Incisional (Fascial) (submandibular/sublingual/submental/left laterpharyngeal spaces) EBL: Minimal Total fluids administered: 900cc Complications: none Drains: Other (Four 12 portuguese red rubber caths in the submandibular/sublingual/ submental/left laterpharyngeal sp) Specimen(s): Aerobic and anerobic cultures
[2016-11-15 05:34] LABS: % IMMATURE GRANULYOCYTES 1.1 % (0.0-1.1); ABSOLUTE IMMATURE GRANULOCYTES 0.16 10^3/uL (0.00-0.10); ADD DIFF? NO; ADD MORPH? NO; ADD SCAN? YES; ATYPICAL LYMPHOCYTE FLAG 70 (0-99); FRAGMENT RBC FLAG 0 (0-99); HEMATOCRIT 43.4 % (40.0-51.0); HEMOGLOBIN 15.3 g/dL (13.7-17.5); LIPEMIA HEMOLYSIS FLAG 90 (0-99); MEAN CELL HEMOGLOBIN 33.6 pg (27.9-34.1); MEAN CELL HEMOGLOBIN CONCENTR. 35.3 g/dL (32.4-36.7); MEAN CELL VOLUME 95.2 fL (81.5-99.8); MEAN PLATELET VOLUME 9.8 fL (8.7-11.7); PLATELET CLUMPS FLAG 0 (0-99); PLATELET COUNT 326 10^3/uL (150-400); RED BLOOD CELL COUNT 4.56 10^6/uL (4.40-6.38); RED CELL DISTRIBUTION WIDTH 11.6 % (11.5-15.2)
[2016-11-15] MEDS ORDERED: KETAMINE 100 MG/10 ML SYR IVP ONE (05:35)
[2016-11-15 05:41] LABS: INR 1.04 (0.83-1.16); PROTIME(PATIENT) 13.5 SEC (12.0-15.0)
[2016-11-15 05:42] LABS: APTT 28.9 SEC (23.0-38.0)
[2016-11-15] MEDS ORDERED: LIDO/EPI 1% **Not for Epidural 20 ML MDV ONE (05:48)
[2016-11-15 05:57] LABS: LEFT SHIFT FLG 230 (0-99)
[2016-11-15 06:01] LABS: ANION GAP 11 mEq/L (8-16); CALCIUM 8.5 mg/dL (8.5-10.4); CARBON DIOXIDE 24 mEq/l (22-31); CHLORIDE 101 mEq/L (97-110); CREATININE 0.8 mg/dL (0.7-1.3); GLOMERULAR FILTRATION RATE > 60; GLUCOSE 99 mg/dL (70-100); POTASSIUM 4.3 mEq/L (3.5-5.2); SODIUM 136 mEq/L (134-144)
--- NOTE | 2016-11-15 06:11 | GCON ---
[f rep st] CONSULTATION DATE OF CONSULTATION: 11/15/2016 HISTORY OF PRESENT ILLNESS: The patient is a 26-year-old male who was previously admitted to the hospital on 11/11/2016 for extraction of tooth #31 and incision and drainage, intraorally and extraorally, of a right submandibular and sublingual space odontogenic infection. He was admitted to the ICU overnight and was intubated. He was on IV Unasyn while an inpatient. He was eventually extubated and discharged on 11/13/2016 on amoxicillin. He reports that he began to have increased swelling, trismus and discomfort starting yesterday which increased throughout the night. He was seen in the emergency department on the night of 11/14/2016 and he was determined after a CT scan to have a worsening infection and CT scan revealed the patient to have Abdulkadir angina and left lateral pharyngeal space infection. He was then re- admitted to the hospitalist service. I evaluated him on the morning of 2016 and determined that I would need to take him back to the operating room for incision and drainage of bilateral submandibular space, submental, sublingual and a left lateral pharyngeal space infection. I also consulted Dr. Darinel Griggs to assist on the surgery. I have also consulted Dr. Darinel Gresham of Infectious Disease to assist on antibiotic selection. PAST MEDICAL HISTORY: Denies history of cardiac, pulmonary, renal or hepatic diseases. ALLERGIES: No known drug allergies. MEDICATIONS: Amoxicillin. PHYSICAL EXAMINATION: GENERAL: The patient is sitting up comfortably in bed. No labored or difficulty breathing. No difficulty controlling secretions. HEAD AND NECK: The patient's maximum vertical opening is limited to approximately 10 mm. The patient's floor of mouth is again swollen. He is having some slight difficulty talking. The incision on the patient's right neck is now spontaneously draining purulent material. There is significant submental and sublingual swelling and cellulitis. There is bilateral submandibular space swelling. Intraoral examination and airway examination are severely limited due to swelling. I am unable to visualize the extraction site. CT SCAN: Maxillofacial CT scan with contrast reveals a large amount of fluid accumulation in the bilateral submandibular, submental, sublingual and left lateral pharyngeal space extending to the skull base. ASSESSMENT AND PLAN: Findings were discussed in detail with the patient. All questions are answered. I informed him that he has a worsening odontogenic infection that will require immediate incision and drainage extraorally and possibly intraorally with drain placement in the operating room. Again, the risks, benefits, consequences and complications of the procedure were reviewed in detail. Signed and verbal was consent obtained. Surgery will be performed this morning. The patient will most likely remain intubated and sedated and will be admitted to the ICU. I will await recommendations from Darinel Gresham as far as antibiotics. /[id number]/MODL MTDD
[2016-11-15] MEDS ORDERED: ERTAPENEM 1 GM in NS 100 ML IV ONE (06:30)
[2016-11-15 06:35] LABS: SCAN POSITIVE
[2016-11-15 06:37] LABS: PLATELET ESTIMATE ADEQUATE (ADEQ)
[2016-11-15] MEDS ORDERED: NALOXONE HCL 0.4 MG/ML INJ IVP PRN (06:46)
[2016-11-15] MEDS ORDERED: fentaNYL 100 MCG/2 ML INJ IVP PRN (06:46)
[2016-11-15] MEDS ORDERED: DEXAMETHASONE 4 MG/ML VIAL ONE (07:05)
[2016-11-15] MEDS ORDERED: MIDAZOLAM 2 MG/2 ML VIAL ONE ×2 (07:05)
[2016-11-15] MEDS ORDERED: ONDANSETRON 4 MG/2 ML VIAL ONE (07:05)
[2016-11-15] MEDS ORDERED: MIDAZOLAM 2 MG/2 ML VIAL IVP PRN (08:02)
[2016-11-15] MEDS: DEXAMETHASONE 4 MG/ML VIAL IVP SCH ×3 (08:06→17:51)
[2016-11-15] MEDS: BACITRACIN OINTMENT 1 PACKET TP SCH ×2 (08:07→21:30)
[2016-11-15] MEDS: CHLORHEXIDINE GLUCONATE 15 ML UDL PO SCH ×4 (08:07→21:31)
[2016-11-15] MEDS ORDERED: fentaNYL/NACL 100 ML IV SCH (08:43)
[2016-11-15] MEDS ORDERED: PROPOFOL/EMULSION 100 ML IV SCH (08:43)
--- NOTE | 2016-11-15 09:36 | GCON ---
[f rep st] CONSULTATION SQL ENGINEER CONSULTATION REASON FOR ADMISSION: Submental abscess, status post I and D of bilateral submandibular, sublingual , submental left lateral pharyngeal abscess. HISTORY OF PRESENT ILLNESS: The patient is a 26-year-old white male without past medical history. He presented to the emergency room with acute face pain. He had recently undergone right-sided drai nage for a submental abscess on November 11. He received IV Unasyn then and was changed to amoxicillin. Again, he presented with acute facial pain, as well as difficulty swallowing, as well as painful s wallowing. He had difficulty opening his mouth. CT scan of the face and neck was ordered, which sh owed submental abscess collection from the inferior margin of the right mandible with a sinus track. He was taken the operating room yesterday, again, where he underwent I and D. Currently, the dexter ent is awake and alert, and on mechanical ventilation. All history is gleaned from the medical [address]. Please note, he was nasally intubated with difficulty by the anesthesia department. PAST MEDICAL HISTORY: None. PAST SURGICAL HISTORY: He had a recent incision and drainage of the right mandible abscess after a tooth extraction. ALLERGIES: No known allergies to medications. SOCIAL HISTORY: No history of tobacco use. No history of alcohol use. PHYSICAL EXAM: VITAL SIGNS: Blood pressure 141/90, pulse 63, respirations 22, temperature is 36.6, oxygen saturation is 100% on 40% mechanical ventilation. GENERAL: He is a well-developed, well-no urished 26-year-old white male who is awake and on mechanical ventilation. HEENT: Eyes are TACO, E JELLY. Throat: Endotracheal tube is in good position. NECK: Bandaged. There are a number of drain s coming out of the left side of his neck. HEART: Regular rate and rhythm without murmurs or llanes ps. LUNGS: Clear to auscultation. No wheeze or rhonchi. ABDOMEN: Soft, nontender. Bowel sounds present in all 4 quadrants. EXTREMITIES: No clubbing, cyanosis, or edema. LABORATORIES: White count 14.9, hemoglobin 15, hematocrit 43, platelet count is 326. Sodium 136, p otassium 4.3, chloride 101, CO2 24, BUN 11, creatinine 0.8, glucose is 99. IMPRESSION: 1. Abscess after tooth extraction. 2. Abdulkadir angina with left lateral pharyngeal space infection. 3. Status post I and D of bilateral submandibular, sublingual, submental left lateral pharyngeal sp christa. 4. Respiratory failure, stable on mechanical ventilation. RECOMMENDATIONS: 1. Antibiotic coverage per Infectious Disease. 2. DVT and PE prophylaxis. 3. Stress ulcer prophylaxis. 4. Assess patient later on today for likely extubation. Thank you very much. /[id number]/MODL
[2016-11-15] MEDS: VANCOMYCIN 1.5 GM in D5W 250 ML IV SCH ×2 (09:44→21:31)
--- NOTE | 2016-11-15 10:27 | GCON ---
[f rep st] CONSULTATION INFECTIOUS DISEASE CONSULTATION DATE OF CONSULTATION: 11/15/2016 REFERRING PHYSICIAN: Edwin Couch DDS ADDITIONAL REQUESTING PROVIDER: Juan Luis Santa MD. REASON FOR CONSULTATION: Abdulkadir angina with submandibular/sublingual/submental/left lateral pharyng eal space abscess. HISTORY OF PRESENT ILLNESS: Patient is a 26-year-old male without significant past medical history who was admitted on 11/11/2016 for a right submandibular abscess of odontogenic etiology. The patie nt underwent extraction of tooth #31, and intraoral and extraoral drainage of a right sublingual and submandibular space abscess. Cultures were obtained and showed growth of mixed oral tennille. The marva osorio received treatment at that time with Unasyn and was discharged on 11/13/2016 with oral amoxici llin 500 mg p.o. q.8 hours. Yesterday, the patient experienced increased swelling, trismus and pain . Based on those findings, he re-presented to the emergency department at which point in time CT sc an of the face and neck was performed which showed evidence of a submental abscess measuring 3.4 x 2 .3 cm x 1.3 cm which appeared to communicate with a collection on the inferior margin of the right m andible with some complex fluid noted in the left parapharyngeal soft tissues and lateral regions. The patient's airway was noted to be intact. The patient subsequently underwent operative drainage this morning which revealed submandibular/sublingual/submental/left lateral pharyngeal space abscess es. Imaging did show that the fluid collections tracked to the skull base. The patient now has 4 r ed rubber catheters in place for ongoing drainage. He was nasally intubated for the procedure. Gra m stain of the operative specimen is currently pending. The patient was started on clindamycin with concerns for failure related to prior Unasyn and amoxicillin use. Based on those concerns, I was c ontacted and recommended ertapenem 1 g. Currently the patient complains being nasally intubated. Maryellen barba is able to answer questions by nodding. He also is writing responses. He does complain of some h eadache which is not severe. He is able to fully move his neck throughout. Based on the above find ings, I am now asked to assist in his ongoing management. PAST MEDICAL HISTORY: Unremarkable other than as outlined above. PAST SURGICAL HISTORY: As above. CURRENT MEDICATIONS: Clindamycin 600 mg IV q.8 hours, status post ertapenem x1 early this morning, status post ertapenem x1, Peridex 15 mL p.o. b.i.d., Decadron 6 mg IV q.6 hours, fentanyl drip as ne eded, Dilaudid as needed. ALLERGIES: No known drug allergies. SOCIAL HISTORY: Patient does not smoke. He describes social alcohol intake. No drug use. FAMILY HISTORY: Difficult to obtain but patient does not note significant family history. REVIEW OF SYSTEMS: Outside that noted in the HPI, the remainder of a 10-system review was unremarka ble or not obtainable. PHYSICAL EXAMINATION: VITAL SIGNS: Temperature 36.6, heart rate 59, respiratory rate 12, blood pre ssure 144/85, oxygen saturation 100% on 40% FiO2. GENERAL: Patient is well-nourished, well-develop ed, in mild discomfort postoperatively. He appears nontoxic. HEENT: There is no scleral icterus, conjunctival injection, or conjunctival petechiae. There is trismus present. The patient is nasall y intubated in the left naris. There is no facial erythema or edema. NECK: Dressed postoperativel y with 4 red [address] cathe[address] in place. The patient is able to move his neck laterally and with fle xion without significant discomfort. CHEST: Clear to auscultation bilaterally without adventitious sounds. CARDIOVASCULAR: Regular rate and rhythm with a 2/6 systolic murmur heard at the left uppe r and left lower sternal border. There are no gallops or rubs. ABDOMEN: Soft, nontender, nondiste nded. There is no palpable organomegaly. Bowel sounds are present. MUSCULOSKELETAL: There is no cyanosis, clubbing, or edema. SKIN: No rashes noted. No stigmata of endocarditis. NEUROLOGIC: P atient is alert and able to answer questions with head nodding. Muscle tone and bulk are normal. S ensation was grossly intact. LYMPHATICS: Unable to assess cervical and supraclavicular region post operatively. LABORATORY DATA: White blood cell count 14.9, hematocrit 43.4, platelets 326, neutrophils 88%. Ser um creatinine is 0.8. Cultures from 11/11/2016 showed mixed oral tennille with Gram stain showing gram -positive cocci and gram-positive rods. Current Gram stain and culture from operative specimens are pending. CT scan of the face and neck as outlined in the history of present illness which was revi ewed and interpreted by me with Radiology today. IMPRESSION: Abdulkadir angina with submandibular/sublingual/submental/left lateral pharyngeal space abs cess, status post incision and drainage: Process is likely odontogenic in etiology based on initial presentation. Suspect this does not represent antibiotic failure; rather is more consistent with n atural history of his abscess/infection. Suspect will likely be associated with oropharyngeal tennille . Will resume Unasyn 3 g IV q.6 hours and add vancomycin for coverage against any penicillin-resist ant microaerophilic streptococci, although this is unusual. Surgical drainage has been performed an d will be critical to resolution. He also has an underlying heart murmur and will obtain blood cult ures to assess for any evidence of endocarditis. RECOMMENDATIONS: 1. Unasyn 3 g IV q.6 hours. 2. Vancomycin 1.5 g IV q.12 hours. 3. Discontinue clindamycin. 4. Blood cultures x2 sets. 5. Follow up cultures and clinical course over time. Thank you for this consultation. We will continue to follow the patient with you. /[id number]/MODL
[2016-11-15] MEDS: FAMOTIDINE 20 MG/NACL 50 ML IV SCH ×2 (11:33→21:31)
[2016-11-15] MEDS: AMPICILLIN/SULBACTAM 3 GM in NS 100 ML IV SCH ×2 (11:56→17:51)
--- NOTE | 2016-11-15 12:12 | GOP ---
[f rep st] OPERATIVE REPORT DATE OF OPERATION: 11/15/2016 SURGEON: Edwin Couch DDS [employer]OTARY [employer]YER OPERATOR: Darinel Griggs MD ANESTHESIA: General nasotracheal anesthesia. PREOPERATIVE DIAGNOSIS: 1. Abdulkadir angina. 2. Left lateral pharyngeal space infection. POSTOPERATIVE DIAGNOSIS: 1. Abdulkadir angina. 2. Left lateral pharyngeal space infection. PROCEDURE PERFORMED: 1. Extraoral incision and drainage of right submandibular space infection. 2. Extraoral incision and drainage of left submandibular space infection. 3. Extraoral incision and drainage of left lateral pharyngeal space infection. 4. Extraoral incision and drainage of sublingual space infection. 5. Extraoral incision and drainage of submental space infection. FINDINGS: Odontogenic abscess of the above-mentioned spaces. ESTIMATED BLOOD LOSS: Minimal. INDICATIONS: The patient is a 26-year-old male who previously had a right submandibular space infection as well as decayed tooth #31, which was extracted on November 11. Extraoral and intraoral incision and drainage of the right submandibular space infection was performed as well as the sublingual space infection, in the operating room. The patient was admitted to the ICU following surgery, and was discharged on Tuesday. Last night, he began to notice increased swelling, trismus, and pain, and was evaluated in the emergency department and noted to have a worsening infection. He was admitted to the hospitalist service. I was consulted, and it was determined that we needed to take the patient to the operating room due to his worsening infection. Risks, benefits, consequences, complications of the procedure were discussed in detail with the patient prior to surgery. Signed and verbal consent was obtained. I consulted Dr. Darinel Griggs to help assist on the incision and drainage of the left lateral pharyngeal space infection. DESCRIPTION OF PROCEDURE: The patient was transported to the operating room and onto the OR table. Following successful awake fiberoptic nasal intubation, the patient was prepped and draped in a normal sterile fashion. Peridex mouth rinse was used to prep intraorally. Betadine was used to prep the skin. The sutures from the right submandibular incision and drainage were removed, and spontaneous drainage was obtained from this site. Aerobic and anaerobic cultures and sensitivities were performed. Local anesthesia was infiltrated into the submental and left submandibular region with 2% lidocaine with 1:100, 000 epinephrine placed superficially. The incision site was first marked in the submental region, and a #15 blade was used to make an incision through the skin. It was carried down through the subcutaneous tissue into the level of the platysma. Blunt dissection was carried through the platysma, and the abscess cavity was entered. Approximately 10 cc of drainage was obtained. Next, Dr. Griggs performed the incision in the left submandibular region 2 cm below the inferior border of the mandible. Dissection was carried down to the platysma. Blunt dissection was performed through the platysma, and Dr. Griggs then identified the anterior border of the sternocleidomastoid muscle and bluntly dissected up the anterior border of the sternocleidomastoid until the abscess cavity in the lateral pharyngeal space was entered. Finger dissection was performed in the lateral pharyngeal space, left submandibular, right submandibular, submental, and sublingual space so that all of the abscess cavities were connected. Four red rubber catheters were then placed into the previously mentioned abscess cavities, and they were irrigated out with 1 L of normal saline impregnated with polymyxin and bacitracin. The drains were secured to the skin with 5-0 Ethilon drain sutures. The incisions were loosely reapproximated with 5-0 interrupted sutures. The patient was left intubated and was transported to the ICU in stable condition. DISPOSITION: The patient will remain on the ICU service until it is determined that he is safe to be extubated, and then will be transferred back on the hospitalist service. He will be discharged once it is determined that the infection has resolved. Dr. Darinel G[place] of [place] was consulted. /[id number]/MODL MTDD
--- NOTE | 2016-11-15 16:12 | HOSPPROG ---
Hospitalist Progress Note Assessment/Plan: # submental abscess s/p I&D - cont vanc/unasyn per ID - cont decadron - pain control # acute resp failure - now extubated Subjective: patient seen and examined; feels better but still has facial pain Objective: Vital Signs Temp Pulse Resp BP Pulse Ox 37 C 54 L 16 136/82 H 98 11/15/16 14:00 11/15/16 14:00 11/15/16 14:00 11/15/16 14:00 11/15/16 14:00 Microbiology 11/15/16 06:15 Gram Stain - Final Neck - Eswab 11/15/16 06:15 Gram Stain - Final Neck - Eswab Laboratory Results 11/15/16 04:46 11/15/16 04:46 11/14/16 11/15/16 11/16/16 05:59 05:59 05:59 Intake Total 1300 110 Output Total 1075 Balance 1300 -965 PT 13.5 SEC (12.0-15.0) 11/15/16 04:46 INR 1.04 (0.83-1.16) 11/15/16 04:46 - Physical Exam Constitutional: no apparent distress ICD10 Worksheet Patient Problems: Problems Problem Status Onset Facial cellulitis Acute
--- NOTE | 2016-11-15 19:09 | SOAPPROG ---
SOAP Progress Note Assessment/Plan: Assessment: Sharan is POD #0 s/p I&D of extraoral I&D of a Abdulkadir's angina as well as a lateral pharyngeal space odontogenic infection. The patient is doing well Plan: 1. Follow ID recs from Darinel 2. Leave drains in until I am confident the infection has resolved 3. Jaw stretching exercises 5x daily 4. Irrigation of drains with 100cc of NS TID 5. Bacitracin to incisions 6. Peridex and regular oral hygiene for oral care 7. The patient will f/u in our clinic once he is discharged. Please call [phone] for an appointment 8. Please call my cell with questions [phone] 11/15/16 19:06 Subjective: Sharan is POD #0 s/p I&D of extraoral I&D of a Abdulkadir's angina as well as a lateral pharyngeal space odontogenic infection. Pain is 5/10. Patient has been extubated and is speaking easily. Overall he feels pretty good. Objective: Vital Signs Temp Pulse Resp BP Pulse Ox 36.8 C 53 L 8 L 131/73 H 99 11/15/16 18:00 11/15/16 18:00 11/15/16 18:00 11/15/16 18:00 11/15/16 18:00 Microbiology 11/15/16 06:15 Gram Stain - Final Neck - Eswab 11/15/16 06:15 Gram Stain - Final Neck - Eswab Laboratory Results 11/15/16 04:46 11/15/16 04:46 11/14/16 11/15/16 11/16/16 05:59 05:59 05:59 Intake Total 1300 1575 Output Total 1575 Balance 1300 0 PT 13.5 SEC (12.0-15.0) 11/15/16 04:46 INR 1.04 (0.83-1.16) 11/15/16 04:46 Facial nerve intact bilaterally, all [address], serosanguineous drainage present on dressings, MVO 10-15mm with pain. extraction site is healing well. Facial swelling as expected, minor cellulitis - Time Spent With Patient Time Spent With Patient: 20 min ICD10 Worksheet Patient Problems: Problems Problem Status Onset Facial cellulitis Acute
[2016-11-15] MEDS: OXYCODONE/APAP 5/325 TAB PO PRN (20:41)
[2016-11-16] MEDS: AMPICILLIN/SULBACTAM 3 GM in NS 100 ML IV SCH ×4 (00:42→18:15)
[2016-11-16] MEDS: DEXAMETHASONE 4 MG/ML VIAL IVP SCH ×4 (00:42→18:11)
[2016-11-16] MEDS: HYDROmorphONE/DILAUDID 1 MG/ML SYR IVP PRN ×4 (03:30→17:02)
[2016-11-16] MEDS: BACITRACIN OINTMENT 1 PACKET TP SCH ×2 (08:50→20:44)
[2016-11-16] MEDS: CHLORHEXIDINE GLUCONATE 15 ML UDL PO SCH ×3 (08:51→20:44)
[2016-11-16] MEDS: FAMOTIDINE 20 MG/NACL 50 ML IV SCH ×2 (08:51→20:44)
[2016-11-16] MEDS: VANCOMYCIN 1.5 GM in D5W 250 ML IV SCH (08:53)
--- NOTE | 2016-11-16 08:56 | PDINTPN ---
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 Not requiring supplemental oxygen * Pain- well tolerated * Disposition-okay for transfer to the floor. Subjective: Sitting up in bed. Pain is well tolerated. He denies any dyspnea. There is no cough or production of sputum. He has good appetite and has been ambulating without difficulty Objective: Vital Signs Temp Pulse Resp BP Pulse Ox 36.7 C 56 L 11 L 114/63 93 11/15/16 22:00 11/16/16 06:00 11/16/16 06:00 11/16/16 06:00 11/16/16 06:00 Microbiology 11/15/16 06:15 Gram Stain - Final Neck - Eswab 11/15/16 06:15 Gram Stain - Final Neck - Eswab Laboratory Results 11/15/16 04:46 11/15/16 04:46 11/15/16 11/16/16 11/17/16 05:59 05:59 05:59 Intake Total 1300 3540 Output Total 1575 Balance 1300 1965 PT 13.5 SEC (12.0-15.0) 11/15/16 04:46 INR 1.04 (0.83-1.16) 11/15/16 04:46 Physical Exam - Physical Exam General Appearance: alert, no apparent distress EENT: PERRL/EOMI Neck: other (Drains in place), No non-tender Respiratory: chest non-tender, lungs clear, normal breath sounds Cardiac/Chest: normal peripheral pulses, regular rate, rhythm Peripheral Pulses: 2+: carotid (R), carotid (L), femoral (R), femoral (L), dorsalis-pedis (R), dorsalis-pedis (L) Abdomen: normal bowel sounds, non-tender, soft Male Genitalia: deferred Rectal: deferred Skin: normal color, warm/dry Extremities: normal range of motion, non-tender, normal inspection, normal capillary refill Neuro/Psych: no motor/sensory deficits, alert, normal mood/affect, oriented x 3 ICD10 Worksheet Patient Problems: Problems Problem Status Onset Facial cellulitis Acute
--- NOTE | 2016-11-16 09:58 | HOSPPROG ---
Hospitalist Progress Note Assessment/Plan: # submental abscess, Abdulkadir's angina s/p I&D - follow cultures - cont vanc/unasyn per ID - cont decadron - pain control # acute resp failure - now extubated - airway seems safe Subjective: feels ok today; having some drainiage Objective: Vital Signs Temp Pulse Resp BP Pulse Ox 36.7 C 56 L 11 L 114/63 93 11/15/16 22:00 11/16/16 06:00 11/16/16 06:00 11/16/16 06:00 11/16/16 06:00 Microbiology 11/15/16 06:15 Gram Stain - Final Neck - Eswab 11/15/16 06:15 Gram Stain - Final Neck - Eswab Laboratory Results 11/15/16 04:46 11/15/16 04:46 11/15/16 11/16/16 11/17/16 05:59 05:59 05:59 Intake Total 1300 3540 Output Total 1575 Balance 1300 1965 PT 13.5 SEC (12.0-15.0) 11/15/16 04:46 INR 1.04 (0.83-1.16) 11/15/16 04:46 - Physical Exam Constitutional: no apparent distress, appears nourished Ears, Nose, Mouth, Throat: other (anterior neck with drains in place, some edema ) Cardiovascular: regular rate and rhythym, no murmur, rub, or gallop Respiratory: no respiratory distress, no rales or rhonchi, clear to auscultation Gastrointestinal: normoactive bowel sounds, soft, non-tender abdomen, no palpable masses ICD10 Worksheet Patient Problems: Problems Problem Status Onset Facial cellulitis Acute
--- NOTE | 2016-11-16 10:14 | PCMIDPN ---
Assessment/Plan: Assessment/Plan: 1. Abdulkadir's Angina with submandibular/submental/sublingual/left lateral pharyngeal space abscess: - s/p I & D - Gs wti Gpc, gnr....cx pending -blood cx pending. Recent abtx so may not grow anything. -may need baseline 2d-echo to further evaluate murmur -wbc elevated but likely reactive given I & D yesterday.Creatinine stable at 0.8. -Continue vanco, unasyn for now while cx mature. -discussed with patient, mom at bedside. questions answered. Meds vanco, 1.5gm q12- 11/15/16 unasyn 3g q6- 11/15/16 Subjective: Afebrile. Feeling better. Pain but under control. Denies sob. mild cough with phlegm. denies abd pain or diarrhea. Drains in place Objective: Vital Signs Temp Pulse Resp BP Pulse Ox 36.7 C 56 L 11 L 114/63 93 11/15/16 22:00 11/16/16 06:00 11/16/16 06:00 11/16/16 06:00 11/16/16 06:00 Microbiology 11/15/16 06:15 Gram Stain - Final Neck - Eswab 11/15/16 06:15 Gram Stain - Final Neck - Eswab Laboratory Results 11/15/16 04:46 11/15/16 11/16/16 11/17/16 05:59 05:59 05:59 Intake Total 1300 3540 Output Total 1575 Balance 1300 1965 - Physical Exam General Appearance: alert, no apparent distress EENT: other (unable to open mouth very wide. no obvious oral ulcers or thrush) Respiratory: lungs clear Neck: other (drains noted) Cardiac/Chest: regular rate, rhythm Extremities: No swelling Abdomen: normal bowel sounds, non-tender, soft, No distended Skin: No erythema ICD10 Worksheet Patient Problems: Problems Problem Status Onset Facial cellulitis Acute
[2016-11-16 10:16] LABS: ANION GAP 9 mEq/L (8-16); CALCIUM 8.8 mg/dL (8.5-10.4); CARBON DIOXIDE 23 mEq/l (22-31); CHLORIDE 103 mEq/L (97-110); CREATININE 0.7 mg/dL (0.7-1.3); GLOMERULAR FILTRATION RATE > 60; GLUCOSE 183 mg/dL (70-100); POTASSIUM 4.9 mEq/L (3.5-5.2); SODIUM 135 mEq/L (134-144)
[2016-11-16] MEDS: HYDROmorphONE/DILAUDID 2 MG TAB PO PRN (21:10)
[2016-11-16] MEDS ORDERED: VANCOMYCIN 1.5 GM in D5W 250 ML IV SCH (22:00)
[2016-11-16] MEDS: OXYCODONE/APAP 5/325 TAB PO PRN (22:43)
[2016-11-17] MEDS: DEXAMETHASONE 4 MG/ML VIAL IVP SCH ×3 (00:55→13:53)
[2016-11-17] MEDS: AMPICILLIN/SULBACTAM 3 GM in NS 100 ML IV SCH ×5 (00:55→18:37)
[2016-11-17] MEDS: BACITRACIN OINTMENT 1 PACKET TP SCH ×2 (08:14→21:54)
[2016-11-17] MEDS: HYDROmorphONE/DILAUDID 2 MG TAB PO PRN ×3 (08:14→22:08)
[2016-11-17] MEDS: CHLORHEXIDINE GLUCONATE 15 ML UDL PO SCH ×2 (08:15→21:54)
[2016-11-17] MEDS: VANCOMYCIN 1.5 GM in D5W 250 ML IV SCH ×2 (12:13→23:59)
[2016-11-17] MEDS: FAMOTIDINE 20 MG/NACL 50 ML IV SCH (12:51)
--- NOTE | 2016-11-17 13:41 | HOSPPROG ---
Hospitalist Progress Note Assessment/Plan: # submental abscess, Abdulkadir's angina s/p I&D - follow cultures - 2/2 coag neg staph from operative cx - cont vanc/unasyn per ID - cont decadron, change to PO - pain control # acute resp failure - now extubated - airway seems safe Subjective: eating well; able to open his mouth; no difficulty breathing Objective: Vital Signs Temp Pulse Resp BP Pulse Ox 36.7 C 67 18 127/84 H 94 11/17/16 08:00 11/17/16 08:00 11/17/16 08:00 11/17/16 08:00 11/17/16 08:00 11/16/16 11/17/16 11/18/16 05:59 05:59 05:59 Intake Total 350 Balance 350 PT 13.5 SEC (12.0-15.0) 11/15/16 04:46 INR 1.04 (0.83-1.16) 11/15/16 04:46 - Physical Exam Constitutional: no apparent distress, appears nourished, No chronically ill appearing, No uncomfortable Ears, Nose, Mouth, Throat: other (mild edema and erythema of his neck, no cervical LAD; drains and sutures in place) ICD10 Worksheet Patient Problems: Problems Problem Status Onset Facial cellulitis Acute
[2016-11-17] MEDS: DEXAMETHASONE 4 MG TAB PO SCH ×3 (14:12→23:59)
--- NOTE | 2016-11-17 17:38 | PCMIDPN ---
Assessment/Plan: Assessment/Plan: * Submandibular, submental, and lateral pharyngeal space abscess status post incision and drainage: Markedly improved post drainage. G stain of operative specimen showed mixed tennille consistent with odontogenic etiology. Cultures now show growth of coagulase-negative Staphylococcus from both specimens. This is an atypical pathogen for odontogenic infection and Gram stain from specimens compatible with odontogenic tennille which would be more typical. Given growth of coagulase-negative staph in both cultures, think will need to treat as if true contributing pathogen while cultures are continuing to be grown anaerobically. I have asked lab to further evaluate coagulase-negative Staph including susceptibility profile. Continue vancomycin and Unasyn. Plan repeat CT scan of neck tomorrow to assess for residual fluid collections. Findings and plan were reviewed with patient, family and Dr. Couch. 11/17/16 17:35 Subjective: Patient feels much better. Able to move jaw significantly more. Marked decrease in pain along jaw and under chin. Able to eat without difficulty. Objective: Vital Signs Temp Pulse Resp BP Pulse Ox 37.1 C 58 L 18 141/82 H 94 11/17/16 16:00 11/17/16 16:00 11/17/16 16:00 11/17/16 16:00 11/17/16 16:00 11/16/16 11/17/16 11/18/16 05:59 05:59 05:59 Intake Total 350 Balance 350 Vancomycin # 3 Unasyn # 3 Blood cultures x2 no growth Operative cultures with growth of coagulase negative Staph in both specimen; gram stain mixed tennille - Physical Exam General Appearance: alert, no apparent distress EENT: other (Range of motion of jaw markedly improved), No conjunctival petechiae Respiratory: lungs clear, No respiratory distress Neck: other (Marked decrease in edema without tenderness and mild edema present ; multiple red rubber drains are in place) Cardiac/Chest: regular rate, rhythm, No systolic murmur Abdomen: non-tender, No distended ICD10 Worksheet Patient Problems: Problems Problem Status Onset Facial cellulitis Acute
[2016-11-17] MEDS ORDERED: DEXAMETHASONE 4 MG TAB PO SCH (18:00)
--- NOTE | 2016-11-17 19:18 | SOAPPROG ---
SOAP Progress Note Assessment/Plan: Assessment: Sharan is POD #2 s/p I&D of extraoral I&D of a Abdulkadir's angina as well as a lateral pharyngeal space odontogenic infection. The patient is doing very well Plan: 1. Follow ID recs from Darinel Mp, will obtain a new CT scan with contrast tomorrow. Evaluate for residual fluid collections 2. Leave drains in until Tuesday as long as CT scan shows no additional fluid collections 3. Jaw stretching exercises 5x daily 4. Irrigation of drains with 100cc of NS TID 5. Bacitracin to incisions 6. Peridex and regular oral hygiene for oral care 7. The patient will f/u in our clinic once he is discharged. Please call [phone] for an appointment 8. Please call my cell with questions [phone] 11/15/16 19:06 11/17/16 19:14 Subjective: Sharan is POD #2 s/p I&D of extraoral I&D of a Abdulkadir's angina as well as a lateral pharyngeal space odontogenic infection. The patient states that he is doing much better. He is doing his jaw stretching exercises and his oral opening is improving. Pain has improved. Objective: Vital Signs Temp Pulse Resp BP Pulse Ox 37.1 C 58 L 18 141/82 H 94 11/17/16 16:00 11/17/16 16:00 11/17/16 16:00 11/17/16 16:00 11/17/16 16:00 11/16/16 11/17/16 11/18/16 05:59 05:59 05:59 Intake Total 350 Balance 350 PT 13.5 SEC (12.0-15.0) 11/15/16 04:46 INR 1.04 (0.83-1.16) 11/15/16 04:[address]. Some slight purulent drainage noted from the submental/ sublingual drains. Floor of mouth swelling is substantially improved except for some residual cellulitis in the anterior FOM. MVO approximately 15mm. Sutures in place. Neck is soft to palpation. Extraction site is healing well. - Time Spent With Patient Time Spent With Patient: 20 min ICD10 Worksheet Patient Problems: Problems Problem Status Onset Facial cellulitis Acute
[2016-11-18] MEDS: AMPICILLIN/SULBACTAM 3 GM in NS 100 ML IV SCH ×4 (02:02→20:00)
[2016-11-18] MEDS: DEXAMETHASONE 4 MG TAB PO SCH ×5 (06:00→23:42)
[2016-11-18] MEDS: BACITRACIN OINTMENT 1 PACKET TP SCH ×2 (08:35→20:00)
[2016-11-18] MEDS: CHLORHEXIDINE GLUCONATE 15 ML UDL PO SCH ×2 (08:35→20:00)
[2016-11-18] MEDS: FAMOTIDINE 20 MG TAB PO SCH (08:35)
--- NOTE | 2016-11-18 08:44 | HOSPPROG ---
Hospitalist Progress Note Assessment/Plan: # submental abscess, Abdulkadir's angina s/p I&D - follow cultures - 2/2 coag neg staph from operative cx - cont vanc/unasyn per ID - cont decadron, change to PO - pain control # acute resp failure - now extubated for days Subjective: no complaints today, opens mouth slightly wider Objective: Vital Signs Temp Pulse Resp BP Pulse Ox 36.4 C 58 L 16 141/87 H 94 11/18/16 08:00 11/18/16 08:00 11/18/16 08:00 11/18/16 08:00 11/18/16 08:00 11/17/16 11/18/16 11/19/16 05:59 05:59 05:59 Intake Total 350 500 Balance 350 500 PT 13.5 SEC (12.0-15.0) 11/15/16 04:46 INR 1.04 (0.83-1.16) 11/15/16 04:46 - Physical Exam Constitutional: no apparent distress, appears nourished Ears, Nose, Mouth, Throat: other (DOROTHY drians in neck, ongoing edema) Cardiovascular: regular rate and rhythym, no murmur, rub, or gallop, systolic murmur Respiratory: no respiratory distress, no rales or rhonchi, clear to auscultation Gastrointestinal: normoactive bowel sounds, soft, non-tender abdomen, no palpable masses ICD10 Worksheet Patient Problems: Problems Problem Status Onset Facial cellulitis Acute
[2016-11-18] MEDS: HYDROmorphONE/DILAUDID 2 MG TAB PO PRN (10:05)
[2016-11-18] MEDS: VANCOMYCIN 1.5 GM in D5W 250 ML IV SCH ×2 (11:48→23:47)
[2016-11-18] MEDS: OXYCODONE/APAP 5/325 TAB PO PRN ×2 (11:51→20:30)
[2016-11-18] MEDS ORDERED: IOPAMIDOL (ISOVUE-300) 100 ML BTL ONE (13:09)
[2016-11-18] MEDS ORDERED: ALTEPLASE 2 MG VIAL IVP PRN (17:04)
--- NOTE | 2016-11-18 17:30 | PCMIDPN ---
Assessment/Plan: Assessment/Plan: * Submandibular, submental, and lateral pharyngeal space abscess status post incision and drainage: Markedly improved post drainage clinically and radiographically. Cultures show growth of S. epidermidis with susceptibility result available tomorrow. No other pathogens have been isolated to date although Gram stain consistent with mixed oral tennille. Continue vancomycin and Unasyn pending Staph epidermidis susceptibility profile. Hope isolate will be beta-lactam susceptible although majority are beta-lactam resistant. Plan to place PICC line tomorrow with anticipated 7 day course of antibiotic therapy by IV route post discharge. Will try to finalize antibiotic recommendations with possible discharge tomorrow once completed. 11/18/16 17:26 Subjective: Patient feels markedly improved. Opening mouth better and continues to be able to eat without difficulty. Objective: Vital Signs Temp Pulse Resp BP Pulse Ox 37.1 C 50 L 18 138/81 H 95 11/18/16 16:00 11/18/16 16:00 11/18/16 16:00 11/18/16 16:00 11/18/16 16:00 11/17/16 11/18/16 11/19/16 05:59 05:59 05:59 Intake Total 350 500 Balance 350 500 Vancomycin # 4 Unasyn # [address] shows marked improvement with minimal residual fluid and inflammatory change Operative cultures both showing growth of Staph epidermidis Blood cultures x2 no growth - Physical Exam General Appearance: alert, no apparent distress EENT: other (Improved range of motion of jaw), No thrush, No conjunctival petechiae Neck: non-tender, other (No erythema and minimal edema adjacent to drain sites) Cardiac/Chest: regular rate, rhythm Abdomen: non-tender, No distended ICD10 Worksheet Patient Problems: Problems Problem Status Onset Facial cellulitis Acute
[2016-11-18] MEDS ORDERED: ZOLPIDEM TARTRATE 5 MG TAB PO PRN (17:45)
[2016-11-19] MEDS: AMPICILLIN/SULBACTAM 3 GM in NS 100 ML IV SCH ×2 (01:22→07:53)
[2016-11-19] MEDS: DEXAMETHASONE 4 MG TAB PO SCH (05:22)
[2016-11-19 05:24] LABS: ANION GAP 7 mEq/L (8-16); CARBON DIOXIDE 26 mEq/l (22-31); CHLORIDE 101 mEq/L (97-110); CREATININE 0.7 mg/dL (0.7-1.3); GLOMERULAR FILTRATION RATE > 60; GLUCOSE 139 mg/dL (70-100); POTASSIUM 4.8 mEq/L (3.5-5.2); SODIUM 134 mEq/L (134-144)
[2016-11-19 07:33] VITALS: BP 126/75; PULSE 84; RESP 16; TEMP 97.5; O2SAT 96
[2016-11-19] MEDS: CHLORHEXIDINE GLUCONATE 15 ML UDL PO SCH (07:52)
[2016-11-19] MEDS: OXYCODONE/APAP 5/325 TAB PO PRN (07:52)
[2016-11-19] MEDS: FAMOTIDINE 20 MG TAB PO SCH (07:52)
[2016-11-19] MEDS: BACITRACIN OINTMENT 1 PACKET TP SCH (07:53)
--- NOTE | 2016-11-19 09:28 | PCMIDPN ---
Assessment/Plan: Polymicrobial Submandibular, submental, and lateral pharyngeal space abscess , cultures showed oxacillin susceptible Staphylococcus epidermidis. This is my first visit but patient reports significantly less swelling and pain. Tenesmus improved --planned 7 days of ertapenem, start today. Unasyn and vancomycin discontinued --PICC line today --arranged f/u with Dr. Gresham next week Talked to Dr. Couch, patient call [phone] and arrange drains to be pulled in Dr. Couch's office today after discharge. discharge from ID standpoint okay. Interagency see form completed, orders were written for the infusion center, coordination of care with case management 11/19/16 11:20 Subjective: feeling well , wants discharge. Objective: Vital Signs Temp Pulse Resp BP Pulse Ox 36.4 C 84 16 126/75 H 96 11/19/16 07:32 11/19/16 07:32 11/19/16 07:32 11/19/16 07:32 11/19/16 07:32 Laboratory Results 11/19/16 04:28 11/18/16 11/19/16 11/20/16 05:59 05:59 05:59 Intake Total 500 100 Balance 500 100 - Physical Exam General Appearance: alert, no apparent distress EENT: other ( minimal submandibular, submental swelling, for drains in place with minimal discharge ; teeth appear relatively healthy, still a bit of tenesmus) Respiratory: No accessory muscle use Extremities: No pedal edema ICD10 Worksheet Patient Problems: Problems Problem Status Onset Facial cellulitis Acute
--- NOTE | 2016-11-19 09:39 | PDIAF ---
- Diagnosis Diagnosis: Submandibular, submental, and lateral pharyngeal space abscess Code Status: Full Code - Medication Management Discharge Medications: Medications to Continue on Transfer Amoxicillin 500 mg PO Q8 11/11/16 [Last Taken 11/10/16] oxyCODONE HCL/ACETAMINOPHEN [Percocet 5-325 mg Tablet] 1 - 2 each PO Q6 PRN #30 tablet 11/13/16 [Last Taken Unknown] Correction Antibiotic Stop Date: 11/26/16 Discharge Medications: Refer to the Discharge Home Medication list for PRN reason. PICC Care - Routine: Yes - Labs/Radiology CBC Date: 11/23/16 CMP Date: 11/23/16 Call or Fax Lab and Imaging Results to: Dr. Gresham [phone] - Follow Up Care Current Providers and Referrals: NONE *PRIMARY CARE P,. [Primary Care Provider] - As per Instructions Darinel Gresham MD [Medical Doctor] - 11/24/16 1:00 pm
--- NOTE | 2016-11-19 09:43 | PDIAF ---
- Diagnosis Diagnosis: Submandibular, submental, and lateral pharyngeal space abscess Code Status: Full Code - Medication Management Discharge Medications: Medications to Continue on Transfer Amoxicillin 500 mg PO Q8 11/11/16 [Last Taken 11/10/16] oxyCODONE HCL/ACETAMINOPHEN [Percocet 5-325 mg Tablet] 1 - 2 each PO Q6 PRN #30 tablet 11/13/16 [Last Taken Unknown] [facility] Antibiotics: ertapenem 1gm IV daily [facility] Antibiotic Stop Date: 11/26/16 Discharge Medications: Refer to the Discharge Home Medication list for PRN reason. PICC Care - Routine: Yes - Labs/Radiology CBC Date: 11/23/16 CMP Date: 11/23/16 Call or Fax Lab and Imaging Results to: Dr. Gresham [phone] - Follow Up Care Current Providers and Referrals: Edwin Couch DDS [Doctor of Dental Surgery] - 1-2 days Darinel Gresham MD [Medical Doctor] - 11/24/16 1:00 pm NONE *PRIMARY CARE P,. [Primary Care Provider] - As per Instructions
[2016-11-19] MEDS ORDERED: ERTAPENEM 1 GM in NS 100 ML IV SCH (10:00)
--- NOTE | 2016-11-19 11:09 | GDS ---
[f rep st] DISCHARGE SUMMARY DIAGNOSES: 1. 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 2. Acute respiratory failure. HOSPITAL COURSE: A 26-year-old man who was recently admitted and discharged for facial cellulitis. He was readmitted with worsening pain in his neck. He was taken somewhat emergently to the operati ng room by Dr. Couch, who did an I and D. He has been followed by antibiotics and treated with anti biotics covering oral tennille. Notably, he also grew out 2/2 Staph epidermidis from his wound culture s, which has been targeted directly by Infectious Disease as well. This is methicillin sensitive. He will be discharged with an additional week of Invanz, covering oral tennille, as well as Staph epide rmidis. He has been on steroids as well for edema. I will discharge him on steroids. He is going to follow up with Dr. Couch in his clinic today to remove the drains. He will also address the dose of steroids he needs to continue on moving forward. I anticipate a somewhat quick taper at this po int. He was left intubated for approximately 20 hours after his I and D, given significant neck edema. H e was extubated without issue and has had no evidence of airway compromise since. BILLING: I spent more than 30 minutes on the day of discharge coordinating care. /[id number]/MODL
== END 2016-11-19 12:43 | disposition home or self-care (01) | DRG 133 ==
LOC: INTOOBSV 11-15 01:40 → F1N 11-15 03:05 → F2N 11-15 07:46 → OBSVTOIN 11-16 09:56 → F3E 11-16 13:45
PROVIDERS: ADMIT Internal Medicine; ATTEND Internal Medicine
PROC: 0W9300Z Drainage of Oral Cavity and Throat with Drainage Device, Open Approach (ICD-10-PCS; principal; 2016-11-15 06:30)
PROC: 0C9M00Z Drainage of Pharynx with Drainage Device, Open Approach (ICD-10-PCS; principal; 2016-11-15 06:30)
PROC: 02HV33Z Insertion of Infusion Device into Superior Vena Cava, Percutaneous Approach (ICD-10-PCS; 2016-11-19)
DX: K12.2 Cellulitis and abscess of mouth (principal); L02.01 Cutaneous abscess of face; J96.00 Acute respiratory failure, unspecified whether with hypoxia or hypercapnia; B95.7 Other staphylococcus as the cause of diseases classified elsewhere; R01.1 Cardiac murmur, unspecified
CPT/HCPCS: 96374; C1751; G0378; J0295; J0330; J1100; J1170; J1335; J2250; J2405; J2704; J3010; J3370; Q9967